=== PATIENT | female | born 1970 ===

== ENCOUNTER 2020-04-12 11:30 | Day surgery (SDC) | payer MEDICAID, SELFPAY ==
[2020-04-06 11:44] VITALS: BMI 37.9
--- NOTE | 2020-04-09 09:14 | P.CONAN_ITS ---
Documented by User: Natacha Jefferson 04/11/20 10:51 HPI - Anesthesia Eval Consult details Narrative: 50yo F for colonoscopy PMFSH Past Medical History Medical History (Updated 04/09/20 @ 09:21 by Natacha Jefferson) Anxiety Depression High BMI History of kidney stones Surgical History Surgical History Hx of cholecystectomy Hx of colonoscopy Hx of endoscopic retrograde cholangiopancreatography Social History Social History Smoking Status: Former smoker Smoking Quit Date: age 45 Use of substances other than those prescribed or required for medical reasons: No Advance Directives: No Advance Directives Information Provided: No Meds Allergies Allergy/AdvReac Type Severity Reaction Status Date / Time No Known Allergies Allergy Verified 04/12/20 11:40 [No Known Allergies*] Home Medications Medication Instructions Recorded Confirmed Type cyanocobalamin (vitamin B-12) 1,000 mcg PO DAILY 04/06/20 04/06/20 History fluticasone propionate [Flonase] 1 spray INTRANASAL DAILY 04/06/20 04/06/20 History loratadine [Claritin] 10 mg PO DAILY 04/06/20 04/06/20 History naproxen 375 mg PO BID PRN 04/06/20 04/06/20 History trazodone 100 mg PO BEDTIME 04/06/20 04/06/20 History venlafaxine [Effexor XR] 37.5 mg PO DAILY 04/06/20 04/06/20 History venlafaxine [Effexor XR] 150 mg PO DAILY 04/06/20 04/12/20 History Exam Exam Date and Time: April 09, 2020 0914 Height,Weight and Vital Signs: Height 5 ft 3 in Weight 97.069 kg Pertinent Lab Results Pertinent Lab Results: Laboratory Tests 02/11/20 02/11/20 02:12 02:12 WBC 10.1 Hgb 12.9 Hct 40.7 Plt Count 249 Sodium 139 Potassium 4.3 Chloride 107 Bicarbonate 23 BUN 22 H Creatinine 0.81 Assessment and Plan Assessment Anesthesia Assessment: Chart Reviewed Documented by User: Rc Mccoy MD 04/12/20 11:52 PMFSH Past Medical History Medical History (Updated 04/09/20 @ 09:21 by Natacha Jefferson) Anxiety Depression High BMI History of kidney stones Surgical History Surgical History Hx of cholecystectomy Hx of colonoscopy Hx of endoscopic retrograde cholangiopancreatography Social History Social History Smoking Status: Former smoker Smoking Quit Date: age 45 Use of substances other than those prescribed or required for medical reasons: No Advance Directives: No Advance Directives Information Provided: No Meds Allergies Allergy/AdvReac Type Severity Reaction Status Date / Time No Known Allergies Allergy Verified 04/12/20 11:40 [No Known Allergies*] Home Medications Medication Instructions Recorded Confirmed Type cyanocobalamin (vitamin B-12) 1,000 mcg PO DAILY 04/06/20 04/06/20 History fluticasone propionate [Flonase] 1 spray INTRANASAL DAILY 04/06/20 04/06/20 History loratadine [Claritin] 10 mg PO DAILY 04/06/20 04/06/20 History naproxen 375 mg PO BID PRN 04/06/20 04/06/20 History trazodone 100 mg PO BEDTIME 04/06/20 04/06/20 History venlafaxine [Effexor XR] 37.5 mg PO DAILY 04/06/20 04/06/20 History venlafaxine [Effexor XR] 150 mg PO DAILY 04/06/20 04/12/20 History Exam Airway Mallampati Class: I TM Dist: >3cm Neck ROM: Full Loose/Missing/Broken Teeth: No Heart: rrr Lungs: nl Other: ao3 Assessment and Plan Assessment Anesthesia Assessment: Anesthesia Plan Discussed, Consent Obtained and Chart Reviewed Final Anesthetic Review NPO: Yes ASA Class: II Final Preanesthetic Review: No Changes in Pt Med Stat, Meds & Allergies Reviewed, Consent Obtained/Reviewed, Med/Surg/Anes Hx Reviewed and Anes Risk s/Benef Reviewed Patient Risk: Low Procedure Risk: Low Anesthetic Plan Anesthetic Plan: MAC: Disposition: Standard PACU
[2020-04-12 11:43] VITALS: BP 151/60; PULSE 68; RESP 18; TEMP 36.3; O2SAT 99
[2020-04-12] MEDS: Lactated Ringers 1,000 ML 100 ML IVCONT (11:52)
[2020-04-12] MEDS: ondansetron HCL 4 MG/2 ML VIAL IVPUSH (12:01)
--- NOTE | 2020-04-12 12:03 | MHC.SHP ---
Pre-Procedural Eval Section B Chief Complaint: adenoma polyps of colon Relevant Family History (Specify if Yes): No Relevant Social History: None Present Medications: see Short Stay Collaborative assessment Medical History: Significant History (anxiety,depression, HLP) History of Previous Operations: Relevant previous surgery/procedure and date(s) (colonoscopy 2018) Allergies: Allergies Allergy/AdvReac Type Severity Reaction Status Date / Time No Known Allergies Allergy Verified 04/12/20 11:40 [No Known Allergies*] Review of Systems Sugical H&P ROS: Negative: Constitution, Cardiovascular, Respiratory, Neurological, Psychiatric, Hem-Onc, Allergic/Immunologic, Gastrointestinal, Genitourinary, Musculoskeletal, Integumentary, Endocrine and Eyes/Ears/Nose/Throat Exam Surgical H&P Exam: Normal: HEENT, Normal: Heart, Normal: Lungs, Normal: Extremities, Normal: Abdomen, Normal: Skin and Normal: Neurological Plan Diagnosis/Plan: Unchanged Patient has been examined and remains a candidate for the planned procedure
--- NOTE | 2020-04-12 12:20 | PC.NURSE ---
H2O AND SIMETHICONE USED
--- NOTE | 2020-04-12 12:33 | P.BOP_ITS ---
Brief Operative Note Date of procedure: 04/12/20 Pre-op diagnosis: hx of polyp and poor prep Post-op diagnosis: same Procedure: Operative Information Procedure Description: Colonoscopy COLONOSCOPY Instrument: Olympus variable stiffness pediatric scope 190L Colonoscopy Monitoring: Vital signs and clinical assessment, continuous EKG monitoring, Pulse oximetry, Carbon Dioxide monitoring and blood pressure monitoring were done throughout the procedure. Colon withdrawal time was [] minutes. Procedure: The patient was placed in the left lateral decubitis position and pre-procedure medications were administered. After a digital rectal examination of the ano-rectum, the video colonoscope was inserted into the rectum and advanced through the colon to the cecum/TI. The colonoscope was slowly withdrawn in a retrograde panoramic fashion and the colon mucosa was carefully examined including a retroflexed view of the rectum. Findings and interventions are described below. Procedure Difficulty: Findings: Terminal Ileum: Normal Cecum: normal Ascending Colon: x 2 sessiel polyps 7-9 mm removed with forceps Transverse Colon -normal Descending Colon: normal Sigmoid Colon: mild to moderate diverticulosis with mucosal hypertrophy Rectum small internal hemorrhoids on retroflexion Ano-rectum - normal Colon preparation: [place] Bowel Preparation Scale Right colon; 2 Transverse colon: 3 Left colon; 3 (0 = Unprepared colon segment with mucosa not seen due to solid stool that cannot be cleared. 1 = Portion of mucosa of the colon segment seen, but other areas of the colon segment not well seen due to staining, residual stool and/or opaque liquid. 2 = Minor amount of residual staining, small fragments of stool and/or opaque liquid, but mucosa of colon segment seen well. 3 = Entire mucosa of colon segment seen well with no residual staining, small fragments of stool or opaque liquid) Impression and Post Procedure Diagnosis: polyps internal hemorrhoids diverticular disease Plan: High fiber diet leaflet Avoid straining at stool, epsom salts and sitz bath prn if needed, anusol supps or cream prn Repeat Colonoscopy in 5 years or earlier if clinically indicated Above findings were reviewed with the patient and relevant handouts were provided if indicated. Surgeon: Mckay Marshall MD Anesthesia: MAC Condition: stable Disposition: PACU
[2020-04-12 12:40] VITALS: BP 131/71; PULSE 65; RESP 16; TEMP 36.3
[2020-04-12 12:55] VITALS: BP 123/67; PULSE 59; RESP 16; TEMP 36.1; O2SAT 99
--- NOTE | 2020-04-12 13:22 | HO.POSTANES ---
Post Anesthesia Evaluation Post Anesthesia Evaluation Vital Signs: Vital Signs Temp Pulse Resp BP Pulse Ox 04/12/20 12:55 97 F 59 16 123/67 99 04/12/20 12:40 97.4 F 65 16 131/71 04/12/20 11:43 97.3 F 68 18 151/60 H 99 Anesthesia: Monitored Mental Status: Awake Pain Control: Satisfactory Nausea/Vomiting: None Hydration: Adequate Anesthesia-Related Issues: No Anes. Related Issues
== END 2020-04-12 13:43 | disposition home or self-care (01) ==
PROVIDERS: Internal Medicine Gastroenterology; PCP Nurse Practitioner Family; Visit Provider Internal Medicine
PROC: 0DJD8ZZ Inspection of Lower Intestinal Tract, Via Natural or Artificial Opening Endoscopic (ICD-10-PCS; CPT 45378; principal; 2020-04-12 12:50)
DX: Z12.11 Encounter for screening for malignant neoplasm of colon (principal); Z86.010 Personal history of colon polyps; D12.2 Benign neoplasm of ascending colon; K57.30 Diverticulosis of large intestine without perforation or abscess without bleeding; K64.8 Other hemorrhoids; F32.9 Major depressive disorder, single episode, unspecified; F41.9 Anxiety disorder, unspecified; Z79.51 Long term (current) use of inhaled steroids; Z79.899 Other long term (current) drug therapy; Z90.49 Acquired absence of other specified parts of digestive tract; Z87.891 Personal history of nicotine dependence; Z87.442 Personal history of urinary calculi
CPT/HCPCS: 45380; 88305; J2405

== ENCOUNTER 2020-04-23 13:14 | Outpatient (REF) | payer MEDICAID, SELFPAY | END 2020-04-23 13:15 | disposition home or self-care (01) | LOC: HO.LAB 13:14 | PROVIDERS: Visit Provider Internal Medicine | DX: Z20.828 Contact with and (suspected) exposure to other viral communicable diseases (principal) | CPT/HCPCS: 87635 ==

== ENCOUNTER 2020-07-28 07:44 | Outpatient (REF) | payer MEDICAID, SELFPAY | END 2020-07-28 07:45 | disposition home or self-care (01) | LOC: HO.MAMMO 07:44 | PROVIDERS: PCP Nurse Practitioner Family; Visit Provider Nurse Practitioner Family | DX: Z13.89 Encounter for screening for other disorder (principal) ==

== ENCOUNTER 2020-09-06 12:37 | Outpatient (REF) | payer MEDICAID, SELFPAY ==
--- NOTE | ~2020-09-06 | MM_ITS ---
EXAMINATION: MM SCREENING DIGITAL BREAST TOMOSYNTHESIS, BILATERAL CLINICAL INFORMATION: Screening. Asymptomatic. The lifetime risk of breast cancer based on the Tyrer-Cuzick Model is 7%. COMPARISON: Mammography: 08/26/2019, 08/20/2018, 08/10/2017 TECHNIQUE: Digital breast tomosynthesis is performed in both the craniocaudal and mediolateral oblique views along with computer-aided detection (CAD). Synthesized 2D images are generated from the tomosynthesis. FINDINGS: There are scattered areas of fibroglandular density (ACR BI-RADS breast composition Category b). There are no significant masses, abnormal calcifications, or other abnormalities. Parenchymal pattern is similar to prior studies. Again, there are some grouped dermal calcifications at the bilateral areas medial breasts. MM/MM tomosynthesis screening BI IMPRESSION: No mammographic evidence of malignancy. ASSESSMENT: BI-RADS 2: Benign RECOMMENDATION: Routine annual mammography screening. This patient's information was entered into a reminder system with a target due date for their next mammogram.
== END 2020-09-06 12:38 | disposition home or self-care (01) ==
LOC: HO.MAMMO 12:37
PROVIDERS: Visit Provider Nurse Practitioner Family
DX: Z12.31 Encounter for screening mammogram for malignant neoplasm of breast (principal)
CPT/HCPCS: 77063; 77067

== ENCOUNTER 2020-10-02 15:52 | Outpatient (REF) | payer MEDICAID, SELFPAY ==
[2020-10-03 09:30] LABS: SARS COV2 PCR INHOUSE NEGATIVE (Negative)
== END 2020-10-02 15:53 | disposition home or self-care (01) ==
LOC: HO.LAB 15:52
PROVIDERS: Visit Provider Internal Medicine
DX: Z20.822 Contact with and (suspected) exposure to COVID-19 (principal)
CPT/HCPCS: C9803; U0003

== ENCOUNTER 2022-01-16 18:30 | Emergency (ER) | payer MEDICAID, SELFPAY ==
--- NOTE | ~2022-01-16 | CT_ITS ---
EXAMINATION: CT ABDOMEN AND PELVIS WITHOUT CONTRAST CLINICAL INFORMATION: Flank pain, history of stones COMPARISON: 02/11/2020 TECHNIQUE: Multidetector volumetric imaging was performed from the superior aspect of the liver through the pubic symphysis. Sagittal and coronal reformatted images were obtained on the technologist's workstation. This CT examination was performed using dose optimization techniques as appropriate, variously including the following: *Automated exposure control *Adjustment of mA and/or kV according to patient size (this includes techniques or standardized protocols for targeted exams where dose is matched to indication/reason for exam; i.e. extremities or head) *Use of iterative reconstruction technique DLP: 907 mGy-cm FINDINGS: LUNG BASES: The visualized lung bases are unremarkable. LIVER, GALLBLADDER, AND BILIARY TREE: The liver is normal in size, shape, and attenuation. No focal hepatic lesion or biliary ductal dilatation is present. Patient is status post cholecystectomy. PANCREAS: Unremarkable. SPLEEN: Unremarkable. ADRENAL GLANDS: Unremarkable. KIDNEYS AND URETERS: No hydronephrosis or obstructing calculus bilaterally. There are several scattered left renal calculi measuring up to 4 mm. BLADDER: Unremarkable. GASTROINTESTINAL TRACT: No evidence of bowel obstruction or significant wall thickening. The appendix is unremarkable. No free fluid or free air is seen. ABDOMINAL WALL: No significant hernia is appreciated. LYMPH NODES: Normal. VASCULAR: Unremarkable. PELVIC VISCERA: Unremarkable. OSSEOUS STRUCTURES: Mild degenerative changes are present in the spine. CT/CT abdomen pelvis wo con IMPRESSION: No hydronephrosis or ureteral calculus. Small left renal calculi noted.
[2022-01-16 20:03] VITALS: BP 138/92; PULSE 87; RESP 16; TEMP 36.6; O2SAT 97; BMI 38.2
[2022-01-16] MEDS: Acetaminophen 325 MG TABLET 650 MG PO (20:11)
[2022-01-16 20:14] LABS: MANUAL DIFF FLAG NO
[2022-01-16 20:19] LABS: Basophils Percent Auto 0.3 % (0-2); Eosinophils Absolute Auto 0.2 X10*3/uL (0.0-0.4); Eosinophils Percent Auto 1.3 % (0-4); Hematocrit 44.7 % (37.0-47.0); Hemoglobin 14.3 g/dl (12.0-16.0); Imm Gran Abs Auto 0.06 X10*3/uL (0.00-0.03); Imm Gran Pct Auto 0.5 % (0.0-0.4); Lymphocytes Absolute Auto 2.5 X10*3/uL (1.2-4.9); Lymphocytes Percent Auto 21.9 % (20-40); Mean Corpuscular Hemoglobin 27.9 pg (27.0-33.0); Mean Corpuscular Volume 87.3 fL (80.0-98.0); Mean Platelet Volume 10.1 fL (9.4-12.3); Monocytes Absolute Auto 0.9 X10*3/uL (0.1-1.2); Monocytes Percent Auto 7.7 % (2-11); Neutrophils Absolute Auto 7.9 x10*3/uL (2.0-8.3); Neutrophils Percent Auto 68.3 % (45-73); Platelet Count 352 X10*3/uL (160-400); Red Blood Count 5.12 X10*6/uL (4.20-5.50); Red Cell Distribution Width 14.9 % (11.0-16.0); White Blood Count 11.6 X10*3/uL (4.8-10.8)
[2022-01-16 20:32] LABS: Alanine Aminotransferase 43 U/L (0-31); Albumin Level 4.6 g/dL (3.5-5.0); Alkaline Phosphatase 153 U/L (39-117); Anion Gap 17 (12-20); Aspartate Amino Transferase 35 U/L (5-31); Bilirubin Direct 0.2 mg/dL (0.0-0.5); Bilirubin Total 0.5 mg/dL (0.0-1.0); Blood Urea Nitrogen 27 mg/dL (9-16); Calcium 9.6 mg/dL (8.4-10.2); Carbon Dioxide 24 mmol/L (22-29); Chloride 102 mmol/L (96-108); Creatinine Clr Calc Pharmacy 87.4; Estimated Glomerular Filt Rate > 60; Glucose Random 122 mg/dL (60-115); Lipase 32 U/L (8-78); Potassium 4.6 mmol/L (3.3-5.1); Sodium 138 mmol/L (135-145); Total Protein 7.8 g/dL (6.5-8.0)
[2022-01-16 20:33] LABS: Appearance Urine HAZY; Color Urine ORANGE; Glucose Urine UA 250 MG/DL (NEG); Leukocyte Esterase Urine TRACE (NEG); Nitrite Urine POS (NEG); Specific Gravity - Urine >= 1.030 (1.005-1.025); UACC Culture Trigger YES; Urine Blood TRACE (NEG); Urine Ketones NEG (NEG); Urine Protein 2+ MG/DL (NEG-TRACE)
[2022-01-16 20:39] LABS: Bacteria Urine TRACE /LPF; Calcium Oxalate Crystals Urine 1+ /LPF; Squamous Epithelial Cell Urine 2+ /LPF
[2022-01-16 20:40] LABS: RBC Urine 0-2 /HPF (0)
--- NOTE | 2022-01-17 03:01 | ED_ITS ---
HPI - Abdominal Pain General Chief Complaint: Abdominal Pain Stated Complaint: abd pain Time Seen by Provider: 01/17/22 03:01 Source: patient and family Mode of arrival: ambulatory Limitations: no limitations History of Present Illness HPI narrative: Patient with History of kidney stone been complaining of lower abdominal pain for last 4 days with urinary frequency also complaining of bilateral flank pain associated with nausea no fever no chills no diarrhea Related Data Home Medications Medication Instructions Recorded Confirmed cyanocobalamin (vitamin B-12) 1,000 mcg PO DAILY 04/06/20 04/06/20 1,000 mcg capsule fluticasone propionate 50 1 spray intranasal DAILY 04/06/20 04/06/20 mcg/actuation nasal spray,suspension loratadine 10 mg tablet (Claritin) 10 mg PO DAILY 04/06/20 04/06/20 naproxen 375 mg tablet 375 mg PO BID PRN Pain 04/06/20 04/06/20 trazodone 100 mg tablet 100 mg PO BEDTIME 04/06/20 04/06/20 venlafaxine 150 mg 150 mg PO DAILY 04/06/20 04/12/20 capsule,extended release 24 hr (Effexor XR) venlafaxine 37.5 mg 37.5 mg PO DAILY 04/06/20 04/06/20 capsule,extended release 24 hr (Effexor XR) Previous Rx's Medication Instructions Recorded cefuroxime axetil 500 mg tablet 500 mg PO BID 10 days #20 tabs 01/17/22 tramadol 50 mg tablet 50 mg PO Q6H PRN pain #20 tabs 01/17/22 Allergies Allergy/AdvReac Type Severity Reaction Status Date / Time No Known Allergies Allergy Verified 04/12/20 11:40 [No Known Allergies*] Review of Systems Review of Systems Yes all other systems are reviewed and are negative PMFSH Past Medical History Medical History Anxiety Depression High BMI History of kidney stones Surgical History Hx of cholecystectomy Hx of colonoscopy Hx of endoscopic retrograde cholangiopancreatography Social History Social History Advance Directives: No Physical Exam ED Vital Signs: Vital Signs - 24 hr 01/16/22 20:03 01/17/22 03:10 01/17/22 06:38 Temperature 97.9 F 98.7 F Pulse Rate 87 86 Respiratory Rate 16 18 16 Blood Pressure 138/92 H 140/74 H Pulse Oximetry 97 100 Oxygen Delivery Method Room Air Room Air BMI result Body Mass Index 38.2 Appearance: Alert. Oriented X3. In moderate distress. ENT: Pharynx normal. Oral Mucosa moist Neck: Normal inspection. Neck supple. CVS: Normal heart rate and rhythm. Pulses normal. Respiratory: No respiratory distress. Equal air entry bilateral, no wheezing/rales/rhonchi Abdomen: Soft and nontender. Bowel sounds are present, no mass palpable, bilateral severe tenderness lower back tenderness Skin: Skin warm and dry. Normal skin color. Normal skin turgor. Extremities: No lower extremity edema. No calf tenderness Neuro: Oriented X 3. No motor deficit. MDM - Abdominal Pain MDM Narrative Medical decision making narrative: Patient lab stable CT scan negative for any acute obstructive uropathy discharge patient home on Ceftin and tramadol Lab Data Attestation: I reviewed the patient's lab results. Result diagrams: 01/16/22 20:11 01/16/22 20:11 Labs: Lab Results 01/16/22 01/16/22 01/16/22 Range/Units 20:11 20:11 20:20 WBC 11.6 H (4.8-10.8) X10*3/uL RBC 5.12 (4.20-5.50) X10*6/uL Hgb 14.3 (12.0-16.0) g/dl Hct 44.7 (37.0-47.0) % MCV 87.3 (80.0-98.0) fL MCH 27.9 (27.0-33.0) pg MCHC 32.0 (31.0-35.0) g/dl RDW 14.9 (11.0-16.0) % Plt Count 352 (160-400) X10*3/uL MPV 10.1 (9.4-12.3) fL Immature Gran % (Auto) 0.5 H (0.0-0.4) % Neut % (Auto) 68.3 (45-73) % Lymph % (Auto) 21.9 (20-40) % [place] % (Auto) 7.7 (2-11) % Eos % (Auto) 1.3 (0-4) % Baso % (Auto) 0.3 (0-2) % Lymph # (Auto) 2.5 (1.2-4.9) X10*3/uL [place] # (Auto) 0.9 (0.1-1.2) X10*3/uL Eos # (Auto) 0.2 (0.0-0.4) X10*3/uL Baso # (Auto) 0.0 (0.0-0.2) X10*3/uL Abs Immat Gran (auto) 0.06 H (0.00-0.03) X10*3/uL Absolute Neuts (auto) 7.9 (2.0-8.3) x10*3/uL Absolute Nucleated RBC 0.000 (0.0-0.012) X10*3/uL Nucleated RBC % (auto) 0.0 (0.0-0.2) /100WBC Sodium 138 (135-145) mmol/L Potassium 4.6 (3.3-5.1) mmol/L Chloride 102 (96-108) mmol/L Carbon Dioxide 24 (22-29) mmol/L Anion Gap 17 (12-20) BUN 27 H (9-16) mg/dL Creatinine 0.83 (0.5-1.4) mg/dL Estim Creat Clear Calc 87.4 Estimated GFR > 60 Random Glucose 122 H (60-115) mg/dL Calcium 9.6 (8.4-10.2) mg/dL Total Bilirubin 0.5 (0.0-1.0) mg/dL Direct Bilirubin 0.2 (0.0-0.5) mg/dL AST 35 H (5-31) U/L ALT 43 H (0-31) U/L Alkaline Phosphatase 153 H (39-117) U/L Total Protein 7.8 (6.5-8.0) g/dL Albumin 4.6 (3.5-5.0) g/dL Lipase 32 (8-78) U/L Urine Color ORANGE A Urine Appearance HAZY Urine pH 5.0 (5.0-8.0) Ur Specific [place] >= 1.030 H (1.005-1.025) Urine Protein 2+ H (NEG-TRACE) MG/DL Urine Glucose (UA) 250 H (NEG) MG/DL Urine Ketones NEG (NEG) MG/DL Urine Blood TRACE (NEG) Urine Nitrite POS H (NEG) Ur Leukocyte Esterase TRACE H (NEG) Urine RBC 0-2 (0) /HPF Urine WBC 1-4 (0-4) /HPF Ur Squamous Epith Cells 2+ /LPF Calcium Oxalate Crystal 1+ /LPF Urine Bacteria TRACE /LPF Discharge Plan Discharge Clinical Impression: UTI (urinary tract infection) Patient Disposition: Home, Self-Care Instructions: Urinary Tract Infection in Women (ED) Additional Instructions: Drink plenty of fluids Antibiotics and pain medicine as prescribed Follow with PCP if not better Prescriptions: New cefuroxime axetil 500 mg tablet 500 mg PO BID 10 Days Qty: 20 0RF tramadol 50 mg tablet 50 mg PO Q6H PRN (Reason: pain) Qty: 20 0RF No Action venlafaxine [Effexor XR] 37.5 mg Capsule,Extended Release 24hr 37.5 mg PO DAILY naproxen 375 mg Tablet 375 mg PO BID PRN (Reason: Pain) venlafaxine [Effexor XR] 150 mg Capsule,Extended Release 24hr 150 mg PO DAILY trazodone 100 mg Tablet 100 mg PO BEDTIME fluticasone propionate [Flonase] 50 mcg/actuation [place],Suspension 1 spray INTRANASAL DAILY loratadine [Claritin] 10 mg Tablet 10 mg PO DAILY cyanocobalamin (vitamin B-12) 1,000 mcg Capsule 1,000 mcg PO DAILY Interventions: ED Discharge Assessment Last Done: 01/17/22 06:39 Discharge Date/Time: 01/17/22 06:40
[2022-01-17 03:10] VITALS: BP 140/74; PULSE 86; RESP 18; TEMP 37.1; O2SAT 100
[2022-01-17] MEDS: 0.9 % Sodium Chloride 1,000 ML 999 ML IV (03:35)
[2022-01-17] MEDS: ondansetron HCL 4 MG/2 ML VIAL IVPUSH (03:38)
[2022-01-17] MEDS: Morphine Sulfate 4 MG/ML CARTRIDGE IVPUSH (03:39)
[2022-01-17] MEDS: cefTRIAXone sodium 1 GM in 0.9 % Sodium Chloride 50 ML IV (03:40)
--- NOTE | 2022-01-17 03:46 | PC.NURSE ---
Pt a&o, no sob or chest pain. Pt Iv placed and labs collected. Medicated per Sep.
[2022-01-17 06:38] VITALS: RESP 16
--- NOTE | 2022-01-17 06:38 | PC.NURSE ---
pt a&o, no sob or chest pain. Reviewed discharge instructions with pt. pt verbalized understanding.
== END 2022-01-17 06:40 | disposition home or self-care (01) ==
PROVIDERS: Emergency Provider Internal Medicine
DX: N39.0 Urinary tract infection, site not specified (principal); B96.4 Proteus (mirabilis) (morganii) as the cause of diseases classified elsewhere; R10.30 Lower abdominal pain, unspecified; R11.0 Nausea; Z79.899 Other long term (current) drug therapy
CPT/HCPCS: 36415; 74176; 80053; 81001; 82248; 83690; 85025; 87086; 87088; 87186; 96361; 96374; 96375; 99284; J0696; J2270; J2405

== ENCOUNTER 2022-12-20 18:27 | Emergency (ER) | payer MEDICAID, SELFPAY ==
--- NOTE | ~2022-12-20 | XR_ITS ---
EXAMINATION: XR SHOULDER, LEFT CLINICAL INFORMATION: Left shoulder pain. COMPARISON: None available. TECHNIQUE: Three views of the left shoulder. FINDINGS: No acute fractures or malalignment. Mild degenerative osteoarthritis of the acromioclavicular joint. No abnormal soft tissue calcifications. No unexpected radiopaque foreign bodies. XR/XR shoulder LT min 2V IMPRESSION: No acute fractures or malalignment. Mild degenerative osteoarthritis of the acromioclavicular joint.
[2022-12-20 18:33] VITALS: BP 148/86; PULSE 68; RESP 18; TEMP 35.9; O2SAT 97; BMI 42.3
--- NOTE | 2022-12-20 18:34 | ECG_ITS ---
Test Reason : SHOULDER PAIN Blood Pressure : / mmHG Vent. Rate : 061 BPM Atrial Rate : 061 BPM P-R Int : 124 ms QRS Dur : 076 ms QT Int : 390 ms P-R-T Axes : 004 010 005 degrees QTc Int : 392 ms Normal sinus rhythm Minimal voltage criteria for LVH, may be normal variant ( R in aVL ) Borderline ECG When compared with ECG of 17-NOV-2014 09:12, T wave amplitude has decreased in Lateral leads Referred By: Gloria Urena Electronically Signed By:DIANN SOUZA MD
--- NOTE | 2022-12-20 18:34 | ED_ITS ---
HPI - General Adult General Chief complaint: General Medical Stated complaint: left arm pain Time Seen by Provider: 12/20/22 20:07 Source: patient Mode of arrival: ambulatory Limitations: no limitations History of Present Illness HPI narrative: Patient comes to the emergency room complaining of 1 week of left shoulder pain. Patient states that whenever she abducts her arm all the way to the top, she has a pinching sensation on the inside. Patient denies chest pain or shortness of breath. Denies any trauma. Related Data Home Medications Medication Instructions Recorded Confirmed cyanocobalamin (vitamin B-12) 1,000 mcg PO DAILY 04/06/20 04/06/20 1,000 mcg capsule fluticasone propionate 50 1 spray intranasal DAILY 04/06/20 04/06/20 mcg/actuation nasal spray,suspension loratadine 10 mg tablet (Claritin) 10 mg PO DAILY 04/06/20 04/06/20 naproxen 375 mg tablet 375 mg PO BID PRN Pain 04/06/20 04/06/20 trazodone 100 mg tablet 100 mg PO BEDTIME 04/06/20 04/06/20 venlafaxine 150 mg 150 mg PO DAILY 04/06/20 04/12/20 capsule,extended release 24 hr (Effexor XR) venlafaxine 37.5 mg 37.5 mg PO DAILY 04/06/20 04/06/20 capsule,extended release 24 hr (Effexor XR) Previous Rx's Medication Instructions Recorded cefuroxime axetil 500 mg tablet 500 mg PO BID 10 days #20 tabs 01/17/22 tramadol 50 mg tablet 50 mg PO Q6H PRN pain #20 tabs 01/17/22 ibuprofen 600 mg tablet 600 mg PO TID PRN fever or pain 12/20/22 #20 tabs Allergies Allergy/AdvReac Type Severity Reaction Status Date / Time No Known Allergies Allergy Verified 12/20/22 18:33 [No Known Allergies*] Review of Systems Review of Systems: Constitutional : No Weight loss, No Fever, No Chills, No Night Sweats, No Fatigue, No Malaise ENT/Mouth : No Hearing loss, No Ear Pain, No Nasal Congestion, No Sinus Pain, No Hoarseness, No sore throat, No Rhinorrhea, No Swallowing Difficulty Eyes: No Eye Pain, No Swelling, No Redness, No Foreign Body, No Discharge, No Vision Changes Cardiovascular : No Chest Pain, No SOB, No Dyspnea on Exertion, No Orthopnea, No Edema, No Palpitations Respiratory : No Cough, No Sputum, No Wheezing, No Smoke Exposure, No Dyspnea Gastrointestinal : No Nausea, No Vomiting, No Diarrhea, No Constipation, No abdominal Pain, No Hematochezia, No Melena Genitourinary : no irregular bleeding, No Dysuria, No Urinary Frequency, No Hematuria, No Urinary Incontinence, No Urgency, No Flank Pain, No Urinary Flow Changes, No Hesitancy Musculoskeletal : Complaining of right shoulder pain, No Myalgias, No Joint Swelling Skin : No Skin Lesions, No rash Neuro : No Weakness, No Numbness, No Paresthesias, No Loss of Consciousness, No Dizziness, No Headache Psych : No Anxiety/Panic, No Depression, No SI/HI/AH/VH, No Social Issues, Heme/Lymph: No Bruising, No Bleeding,No Lymphadenopathy Endocrine : No Polyuria, No Polydipsia, No Temperature Intolerance [facility] Past Medical History Medical History Anxiety Depression High BMI History of kidney stones Surgical History Hx of cholecystectomy Hx of colonoscopy Hx of endoscopic retrograde cholangiopancreatography Social History Social History Advance Directives: No Advance Directives Information Provided: No Physical Exam ED Vital Signs: Vital Signs - 24 hr 12/20/22 18:33 12/20/22 19:45 Temperature 96.7 F L Pulse Rate 68 61 Respiratory Rate 18 18 Blood Pressure 148/86 H 140/70 H Pulse Oximetry 97 98 Oxygen Delivery Method Room Air Room Air BMI result Body Mass Index 42.3 Const Other: Appearance: Alert. Oriented X3. No acute distress. Eyes: Pupils equal, round and reactive to light. ENT: Pharynx normal. Neck: Normal inspection. Neck supple. No lymph nodes noted. No crepitus CVS: Normal heart rate and rhythm. Pulses normal. Normal S1 and S2 Respiratory: No respiratory distress. Breath sounds normal. No Wheezing. No rales Abdomen: Soft and nontender. No rigidity. No distention. Skin: Skin warm and dry. Normal skin color. Normal skin turgor. Extremities: No lower extremity edema. No Lacerations. No Rash. Pain with abduction, able to abduct to 180 degrees but with pain doing so. Pain to palpation in the suprascapular area and the distal clavicular area, strength 5/5 Neuro: Oriented X 3. No motor deficit. No sensory deficit. Moving all extremities. No slurred speech. CN 2 through 12 grossly intact Psych: calm, cooperative, normal affect Course Course Course Narrative: This is an RME: Additional HPI, ROS, PE not included below will be deferred to primary provider. 52-year-old female presents with atraumatic left-sided shoulder pain, worse with movement better at rest, started a week ago and has been worsening ever since. Denies trauma. Denies numbness and tingling. No fevers or chills. No overlying skin changes. Full range of motion to left shoulder however uncomfortable with overhead motions. Plan x-ray Medical Decision Making Medical Decision Making MDM Narrative: I discussed the physical exam with patient, patient may have bursitis. Patient has not tried any ibuprofen at home, she will try alternating with Tylenol. I discussed with the patient that if she has no improvement, she needs to have follow-up with her primary care physician, she may need physical therapy versus more advanced imaging/MRI -EKG my interpretation: Normal sinus rhythm, heart rate 61, no ST segment depression or elevation, nonspecific T-wave inversion in V3, QTC 392 -left shoulder pain he unlikely to be from cardiac etiology Differential Diagnosis Differential Diagnoses: The differential diagnosis associated with the presentation includes (Osteoarthritis, labrum tear, tendinitis, rotator cuff injury) Radiology Impression Discussion of test interpretation with radiology: I have reviewed the radiologist's reading. Radiologist Impression: FINDINGS: No acute fractures or malalignment. Mild degenerative osteoarthritis of the acromioclavicular joint. No abnormal soft tissue calcifications. No unexpected radiopaque foreign bodies.? XR/XR shoulder LT min 2V IMPRESSION: No acute fractures or malalignment. Mild degenerative osteoarthritis of the acromioclavicular joint. ? Discharge Plan Discharge Clinical Impression: Subacromial bursitis of left shoulder joint Patient Disposition: Home, Self-Care Instructions: Shoulder Bursitis (ED) Additional Instructions: Please follow-up with your primary care physician tomorrow. If you have any worsening or new symptoms, please return to the emergency room or call 911 Prescriptions: New ibuprofen 600 mg tablet 600 mg PO TID PRN (Reason: fever or pain) Qty: 20 0RF No Action venlafaxine [Effexor XR] 37.5 mg Capsule,Extended Release 24hr 37.5 mg PO DAILY naproxen 375 mg Tablet 375 mg PO BID PRN (Reason: Pain) venlafaxine [Effexor XR] 150 mg Capsule,Extended Release 24hr 150 mg PO DAILY trazodone 100 mg Tablet 100 mg PO BEDTIME fluticasone propionate [Flonase] 50 mcg/actuation [place],Suspension 1 spray INTRANASAL DAILY loratadine [Claritin] 10 mg Tablet 10 mg PO DAILY cyanocobalamin (vitamin B-12) 1,000 mcg Capsule 1,000 mcg PO DAILY cefuroxime axetil 500 mg tablet 500 mg PO BID 10 Days Qty: 20 0RF tramadol 50 mg tablet 50 mg PO Q6H PRN (Reason: pain) Qty: 20 0RF
[2022-12-20 19:45] VITALS: BP 140/70; PULSE 61; RESP 18; O2SAT 98
[2022-12-20] MEDS: Ibuprofen 600 MG TABLET PO (20:26)
== END 2022-12-20 20:45 | disposition home or self-care (01) ==
PROVIDERS: Emergency Provider Emergency Medicine
DX: M75.52 Bursitis of left shoulder (principal); M79.602 Pain in left arm
CPT/HCPCS: 73030; 93005; 99283; 99284

== ENCOUNTER 2023-06-19 13:22 | Outpatient (REF) | payer MEDICAID, SELFPAY | END 2023-06-19 13:23 | disposition home or self-care (01) | LOC: HO.MAMMO 13:22 | DX: Z12.31 Encounter for screening mammogram for malignant neoplasm of breast (principal) | CPT/HCPCS: 77063; 77067 ==

== ENCOUNTER → 2023-06-19 13:30 | Outpatient (BNV) | payer MEDICAID, SELFPAY | PROVIDERS: Visit Provider Radiology Diagnostic Radiology | DX: Z12.31 Encounter for screening mammogram for malignant neoplasm of breast (principal) | CPT/HCPCS: 77063; 77067 ==

== ENCOUNTER 2023-07-14 09:50 | Outpatient (REF) | payer MEDICAID, SELFPAY ==
[2023-07-14 12:01] LABS: Alanine Aminotransferase 45 U/L (0-31); Albumin Level 4.3 g/dL (3.5-5.0); Alkaline Phosphatase 146 U/L (39-117); Anion Gap 11 (12-20); Aspartate Amino Transferase 31 U/L (5-31); Bilirubin Total 0.5 mg/dL (0.0-1.0); Blood Urea Nitrogen 16 mg/dL (9-16); Calcium 9.8 mg/dL (8.4-10.2); Carbon Dioxide 26 mmol/L (22-29); Chloride 108 mmol/L (96-108); Cholesterol 229 mg/dL (<200); Estimated Glomerular Filt Rate > 60; Glucose Random 94 mg/dL (60-115); HDL Cholesterol 64 mg/dL (>40); LDL Cholesterol Calculated 144 mg/dL (<100); Potassium 4.5 mmol/L (3.3-5.1); Sodium 140 mmol/L (135-145); Total Protein 7.4 g/dL (6.5-8.0); Triglycerides 107 mg/dL (<150)
[2023-07-14 12:06] LABS: Estimated Average Glucose 100 mg/dL; Hemoglobin A1c % 5.1 % (<6.0)
[2023-07-14 12:31] LABS: Vitamin B12 430 pg/mL (200-900)
== END 2023-07-14 09:51 | disposition home or self-care (01) ==
LOC: HO.HHCL 09:50
PROVIDERS: Visit Provider Nurse Practitioner Primary Care
DX: I10 Essential (primary) hypertension (principal)
CPT/HCPCS: 36415; 80053; 80061; 82607; 83036

== ENCOUNTER 2023-08-18 08:01 | Outpatient (AMB) | payer MEDICAID, SELFPAY ==
--- NOTE | 2023-08-18 08:05 | A.OFFVIS_ITS ---
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 No complaints. Last Pap/HPV was negative in 04/20 Last Mammogram was BI-RADS 1 in 06/27 Last Colonoscopy was in 04/24, the recommendation was to repeat in 5 years [facility] Medical History HTN (hypertension) High BMI History of kidney stones Anxiety Depression Surgical History Hx of colonoscopy Hx of endoscopic retrograde cholangiopancreatography Hx of cholecystectomy Family History Brother HTN (hypertension) Diabetes Father HTN (hypertension) Diabetes Mother Diabetes Paternal Uncle Colon cancer Social History Household Members Other:: daughter Housing: House Alcohol intake: current Alcohol intake frequency: a few times a week Alcohol type: beer Patient Tobacco Use Status: Former Tobacco user Years Smoked: 20 Current occupational status: disabled Sexually active: No Sexual orientation: Straight/Heterosexual Gender identity: Female Female Reproductive History Menstrual Total pregnancies: 7 Full term: 5 Number of Living Children: 5 Ab spontaneous: 1 Date of Mammogram: 06/19/23 Review of Systems Const All systems reviewed & are unremarkable except as noted in HPI and below Card Reports as per HPI Resp Reports as per HPI GI Reports as per HPI and Reports no additional complaints Reports as per HPI Physical Exam Vital Signs: Last Vital Signs BP 140/80 H 08/18/23 08:12 BMI result Body Mass Index 41.4 Const General: cooperative, healthy appearing and comfortable Chest Chest palpation & inspection: normal inspection of the chest and normal palpation of entire chest wall Breast/axilla inspection: normal inspection of the breasts and normal inspection of the axillae Breast/axilla palpation: normal palpation of the breasts, normal palpation of the axillae and no axillary lymphadenopathy Resp Effort & Inspection: normal respiratory effort Auscultation: clear to auscultation bilaterally Percussion: percussion normal Cardio Palpation: normal PMI Rate: regular rate Rhythm: regular rhythm Heart sounds: no murmurs and no rubs Peripheral pulses: Peripheral pulses 2+ throughout GI Inspection: Yes normal to inspection Palpation (GI): Soft to palpation, nontender, no guarding, not rigid and No hepatosplenomegaly present Percussion: Yes normal to percussion Auscultation: normal bowel sounds Rectal Exam - Female: deferred General: Yes bladder normal to palpation External Female Exam: No lesion Speculum Exam - Vagina: normal appearance of the vagina, normal palpation, normal vaginal discharge and not erythematous Speculum Exam - Cervix: normal appearance of the cervix and normal palpation Bimanual exam- vagina & uterus: normal bimanual exam, normal palpation, uterine size normal, bladder normal to palpation, consistency normal and normal palpation Bimanual Exam- Adnexa, other: normal adnexae, no masses and no tenderness Assessment & Plan Assessment & Plan (1) Well woman exam: Code(s): Z01.419 - Encounter for gynecological examination (general) (routine) without abnormal findings Plan: Co testing done. Counseled the patient about the recommended dietary allowance of 1200 mg of Calcium & 600 IU of vitamin D. Instructions given the patient to schedule next screening Mammogram in 06/27. The patient was instructed to perform monthly self-breast exams and schedule annual exam in a year. All questions answered and the patient verbalized understanding. Coding Level of Care Code New Pt Prev Care 40-64y(36668) Diagnoses Well woman exam Z01.419
[2023-08-18 08:12] VITALS: BP 140/80; BMI 41.4
== END 2023-08-18 09:59 | disposition home or self-care (01) ==
PROVIDERS: Visit Provider Obstetrics & Gynecology
DX: Z01.419 Encounter for gynecological examination (general) (routine) without abnormal findings (principal)
CPT/HCPCS: 99386

== ENCOUNTER 2023-08-18 08:01 | Outpatient (REF) | payer MEDICAID, SELFPAY ==
[2023-08-21 03:04] LABS: HPV mRNA E6/E7 rflx Not Detected (Not Detected)
== END 2023-08-18 08:02 | disposition home or self-care (01) ==
LOC: HO.LNP 08:01
PROVIDERS: Visit Provider Obstetrics & Gynecology
DX: Z01.419 Encounter for gynecological examination (general) (routine) without abnormal findings (principal); Z11.51 Encounter for screening for human papillomavirus (HPV)
CPT/HCPCS: 87624; 88142; 99386

== ENCOUNTER 2024-02-16 19:34 | Emergency (ER) | payer MEDICAID, SELFPAY ==
--- NOTE | 2024-02-16 19:49 | ED.WOUNDLAC ---
HPI - Wound/Laceration General Chief Complaint: Extremity Injury, Upper Stated Complaint: lacerated finger tips Time Seen by Provider: 02/16/24 20:01 Source: patient Mode of arrival: ambulatory Limitations: no limitations History of Present Illness ED Provider: Suzi Rich PA-C HPI narrative: 53-year-old female presents to the ER for evaluation of avulsions to the left thumb and left pinky finger that occurred 3 days ago and she was cutting vegetables. Patient attempted to glue the wound shut at home but it did not work. No bleeding today. She has ongoing pain with flexion of the fingers. Tdap is up-to-date. Denies numbness or tingling. Onset (ago): day(s) (3) Place: home Patient tetanus UTD: Yes Context: accidental Associated symptoms: pain Treatments prior to arrival: bandage and other (skin glue) Related Data Home Medications ?Medication ?Instructions ?Recorded ?Confirmed cyanocobalamin (vitamin B-12) 1,000 mcg PO DAILY 04/06/20 04/06/20 1,000 mcg capsule fluticasone propionate 50 1 spray intranasal DAILY 04/06/20 04/06/20 mcg/actuation nasal spray,suspension loratadine 10 mg tablet (Claritin) 10 mg PO DAILY 04/06/20 04/06/20 naproxen 375 mg tablet 375 mg PO BID PRN Pain 04/06/20 04/06/20 trazodone 100 mg tablet 100 mg PO BEDTIME 04/06/20 04/06/20 venlafaxine 150 mg 150 mg PO DAILY 04/06/20 04/12/20 capsule,extended release 24 hr (Effexor XR) venlafaxine 37.5 mg 37.5 mg PO DAILY 04/06/20 04/06/20 capsule,extended release 24 hr (Effexor XR) lisinopril 10 mg tablet 10 mg PO DAILY 08/18/23 Previous Rx's ?Medication ?Instructions ?Recorded tramadol 50 mg tablet 50 mg PO Q6H PRN pain #20 tabs 01/17/22 ibuprofen 600 mg tablet 600 mg PO TID PRN fever or pain 12/20/22 #20 tabs Allergies Allergy/AdvReac Type Severity Reaction Status Date / Time No Known Allergies Allergy Verified 02/16/24 19:54 [No Known Allergies*] Review of Systems Review of Systems: Yes all other systems are reviewed and are negative [facility] Past Medical History Medical History HTN (hypertension) High BMI History of kidney stones Anxiety Depression Surgical History Hx of colonoscopy Hx of endoscopic retrograde cholangiopancreatography Hx of cholecystectomy Family History Family History Brother HTN (hypertension) Diabetes Father HTN (hypertension) Diabetes Mother Diabetes Paternal Uncle Colon cancer Social History Social History Household Members Other:: daughter Housing: House Alcohol intake: current Alcohol intake frequency: a few times a week Alcohol type: beer Patient Tobacco Use Status: Former Tobacco user Years Smoked: 20 Do you have a plan to hurt others: No Plan Current occupational status: disabled Sexual orientation: Straight/Heterosexual Gender identity: Female Physical Exam Vital Signs: Vital Signs: Last Vital Signs Temp 98.5 F 02/16/24 19:50 Pulse 76 02/16/24 19:50 Resp 16 02/16/24 19:50 BP 120/59 L 02/16/24 19:50 Pulse Ox 96 02/16/24 19:50 O2 Del Method Room Air 02/16/24 19:50 BMI result Body Mass Index 40.4 Appearance: Alert. Oriented X3. No acute distress. HEENT: normal inspection CVS: Normal heart rate and rhythm. Pulses normal. Respiratory: No respiratory distress. Skin: Skin warm and dry. Normal skin color. Normal skin turgor. No rashes. Extremities: Left than 1 cm skin avulsion of the tip of the left pinky finger and the tip of the left thumb with epithelialization present, no active bleeding. Wounds are well approximated. Cap refill is less than 3 seconds. No nail involvement. Neuro: Oriented X 3. No motor deficit. No sensory deficit. Medical Decision Making Medical Decision Making MDM Narrative: 53-year-old female presents to the ER for evaluation of avulsion wounds of her left thumb and left pinky finger that occurred 3 days ago when chopping vegetables. She is having ongoing pain and wound continues to slightly open as she is using her hands continuing to do the dishes and cook food. No active bleeding today. Pain is worse on palpation of the left thumb wound. No evidence of infection on examination. Wounds are 3-day-old there is no role for suture repair. Wounds were cleansed with alcohol and Dermabond and Steri-Strips were used to reinforce the wounds. Dry sterile dressing was applied. Wound care was discussed with the patient she is stable for discharge home. Differential Diagnosis Differential Diagnoses: The differential diagnosis associated with the presentation includes Superficial laceration, skin avulsion, deep laceration, cellulitis, delayed wound healing Independent Historian Clinical information obtained from an independent historian. History obtained from or confirmed by: Friend External Record Review External record reviewed: Outpatient record, Prior outpatient labs and Prior outpatient radiology Prescription Management I considered prescription management with: Antibiotic Procedures Laceration Laceration 1: Site: hand Side (If applicable): left Size (cm): 1 Description: flap Depth: simple, single layer Pre-repair: irrigated extensively and deep structures intact Skin layer closed with: other (Dermabond and Steri-Strips) Laceration 2: Site: hand Side (If applicable): left Size (cm): 1 Description: flap Depth: simple, single layer Pre-repair: irrigated extensively and deep structures intact Skin layer closed with: other (Skin glue and Steri-Strips) Critical Care Time Critical Care Time Critical Care Time: No Discharge Plan Discharge Clinical Impression: Avulsion of finger tip Qualifiers: Encounter type: initial encounter Qualified Code(s): S61.209A - Unspecified open wound of unspecified finger without damage to nail, initial encounter Patient Disposition: Home, Self-Care Instructions: Finger Laceration (ED) Additional Instructions: Skin glue and steri strips were used to close and cover the wounds. Do not get wet for 48 hours, after that you can briefly wash with soap and water then pat dry. Keep wound clean and covered. Do not submerge in water, no swimming, no dishes If you develop signs of infection including increased pain, swelling, redness or drainage of pus come back to the ER for further evaluation. Prescriptions: No Action venlafaxine [Effexor XR] 37.5 mg Capsule,Extended Release 24hr 37.5 mg PO DAILY naproxen 375 mg Tablet 375 mg PO BID PRN (Reason: Pain) venlafaxine [Effexor XR] 150 mg Capsule,Extended Release 24hr 150 mg PO DAILY trazodone 100 mg Tablet 100 mg PO BEDTIME fluticasone propionate [Flonase] 50 mcg/actuation [place],Suspension 1 spray INTRANASAL DAILY loratadine [Claritin] 10 mg Tablet 10 mg PO DAILY cyanocobalamin (vitamin B-12) 1,000 mcg Capsule 1,000 mcg PO DAILY tramadol 50 mg tablet 50 mg PO Q6H PRN (Reason: pain) Qty: 20 0RF ibuprofen 600 mg tablet 600 mg PO TID PRN (Reason: fever or pain) Qty: 20 0RF lisinopril 10 mg tablet 10 mg PO DAILY Referrals: [facility] [Primary Care Provider] - Print Language: Swedish
[2024-02-16 19:50] VITALS: BP 120/59; PULSE 76; RESP 16; TEMP 36.9; O2SAT 96; BMI 40.4
[2024-02-16 20:22] VITALS: BP 120/59; PULSE 76; RESP 16; TEMP 36.9; O2SAT 96
== END 2024-02-16 20:22 | disposition home or self-care (01) ==
PROVIDERS: Emergency Provider Emergency Medicine
DX: S61.012A Laceration without foreign body of left thumb without damage to nail, initial encounter (principal); S61.217A Laceration without foreign body of left little finger without damage to nail, initial encounter; W26.0XXA Contact with knife, initial encounter; Y93.G1 Activity, food preparation and clean up; Y92.010 Kitchen of single-family (private) house as the place of occurrence of the external cause; Y99.9 Unspecified external cause status
CPT/HCPCS: 12001; 99282; 99284

== ENCOUNTER 2025-01-13 08:16 | Outpatient (REF) | payer MEDICAID, SELFPAY ==
--- OUTSIDE RECORDS SUMMARY | 2023-10-06 11:45 | XMS_ITS | Continuity of Care Document ---
Author Organization [facility] Address [address] [place] [id number] Phone Care Team Providers Care Data Acquisition Technician Name Role Phone Naren FARLEY, RVT, AKILAH, Trung Unavailable U navailable Procedures Procedure Date Office/Outpt E&M Established 15 Mins- CT & MA Duplex Scan-extrem Veins; Comp- CT & MA Phleb Veins - Extrem - To 20- CT & MA Ma Inj Scleros Solut; Mx Veins 1- CT & MA M Duplex Scan-extrem Veins; 24 Endovenous Laser, 1st Vein Phleb Veins - Extrem 20+ Inj Scleros Solut; Mx Veins 1 4 Duplex Scan-extrem Veins; / 24 Endovenous Laser, 1st Vein Endovenous Laser, 1st Vein Ultrason Guidan Needle Bx-rad 4 Inj Sclerosing Solution; Sngl 4 Offic/outpt E&m Estab 5 Min Trial - Tele medicine Duplex Scan-extrem Veins; Comp Office/Oupt E&M New Pt 45 Mins Advance Directives Directive Yes / No Effective Date File Name No Information Encounters Encounter Description Practice Location Reason(s) For Visit Diagnoses Date Provider Providers Copied on Encounter Office/Outpt E&M Established 15 Mins- CT & [place] [facility] MD FERGUSON, [address] [place] [address] Dr [place] [address]SuRamos syed [place], [id number], [place] tel:[phone] [place] - [place] Varicose veins of bilateral lower extremities with other complications Cramp and spasmRestless legs syndromePruri tus, unspecified Apr-0 2 4 Naren FARLEY RVT, AKILAH Nino. [address] [place] [address], [place], [place], [id number], [place]. tel:[phone] Referring Provider: Josephine Watkins NP, [address] [place] [address] [address], [place], [address]. tel:[phone] [facility], [address] [place] [address] Dr Lockett [address]SuRamos syed [place], [id number], [place] tel:[phone] [facility] - [place] Chronic venous hypertension (idiopathic) with other complications of bilateral lower extremity Apr-0 4 Naren FARLEY RVT, AKILAH Nino. [address] [place] [address], [place], [place], [id number], [place]. tel:[phone] Referring Provider: Josephine Watkins PHP WEBSITE DEVELOPER, [address] [place] [address] [address], [place], [address]. tel:[phone] [facility], [address] [place] [address] Dr Lockett [address]Suite Ramos Aqu[place], [id number], [place] tel:[phone] [facility] - [place] Varicose veins of right lower extremity with other complications Sep-2 0- 4 Kenya Oneill. [address] [place] [address], [place], [place], [id number], [place]. tel:[phone] Referring Provider: Josephine Watkins NP, [address] [place] [address] [address], [place], [address]. tel:[phone] [facility], [address] [place] [address] Dr Lockett [address]Suite Ramos Aquino [place], [id number], [place] tel:[phone] CVR - [place] Encounter for follow-up examination after completed treatment for conditions other than malignant neVaricose veins of right lower extremity with pain Mar-2 0- 4 Naren FARLEY RVT, AKILAH Nino. [address] [place] [address], [place], [id number], [place]. tel:[phone] Referring Provider: Josephine Watkins NP, [address] [place] [address] [address], [place], [address]. tel:[phone] [facility], [address] [place] [address] [address] [address]Ramos [place], [id number], [place] tel:[phone] CVR - [place] Varicose veins of right lower extremity with other complications Mar-1 3- 4 Naren FARLEY RVT, AKILAH Nino. [address] [place] [address], [place], [id number], [place]. tel:[phone] Referring Provider: Josephine Watkins NP, [address] [place] [address] [address], [place], [address]. tel:[phone] [facility], [address] [place] [address] [address] 1000Ramos [place], [id number], [place] tel:[phone] CVR - [place] Varicose veins of left lower extremity with other complications Mar-0 5- 4 Kenya Oneill. [address] [place] [address] [address], [place], [id number], [place]. tel:[phone] Referring Provider: Josephine Watkins NP, [address] [place] [address] [address], [place], [address]. tel:[phone] [facility], [address] [place] [address] [address] [address]Ramos [place], [id number], [place] tel:[phone] CVR [place] Encounter for follow-up examination after completed treatment for conditions other than malignant neVaricose veins of left lower extremity with pain Mar-0 5- 4 Naren FARLEY RVT, AKILAH Nino. [address] [place] [address] [address], [place], [id number], [place]. tel:[phone] Referring Provider: Josephine Watkins NP, [address] [place] [address] [address], [place], [address]. tel:[phone] [facility], [address] [place] [address] Dr [address]ett [address]Ramos syed [place], [id number], [place] tel:[phone] CVR - [place] Chronic venous hypertension (idiopathic) with inflammation of left lower extremity Sep-0 4 Naren FARLEY RVT, AKILAH Nino. [address] [place] [address], [place], [id number], [place]. tel:[phone] Referring Provider: Josephine Watkins NP, [address] [place] [address] [address], [place], [address]. tel:[phone] [facility] MD FERGUSON, [address] [place] [address] Dr Lockett [address]Ramos syed [place], [id number], [place] tel:[phone] CVR - [facility] Varicose veins of left lower extremity with other complications 4 Naren FARLEY RVT, AKILAH Nino. [address] [place] [address], [place], [id number], [place]. tel:[phone] Referring Provider: Josephine Watkins NP, [address] [place] [address] [address], [place], [address]. tel:[phone] Offic/outpt E&m Estab 5 Min Trial - Telemedicine [facility], [address] [place] [address] Dr [address] [address]SuRamos syed [place], [id number], [place] tel:[phone] CV[place] - [place] Localized edemaCramp and spasmRestless legs syndromeVenou s insufficiency (chronic) (peripheral)P ruritus, unspecified 3 Kenya Oneill. [address] [place] [address], [place], [id number], [place]. tel:[phone] Referring Provider: Josephine Watkins NP, [address] [place] [address] [address], [place], [address]. tel:[phone] [facility], [address] [place] [address] Dr [address] [place], [id number], [place] tel:[phone] [place] - [place] Varicose veins of bilateral lower extremities with pain Sep- 3 Ru FARLEY FACS RVT AKILAH Garza. [address], [address], [facility] [place], [address], [place]. tel:[phone] Referring Provider: Josephine Watkins PHP WEBSITE DEVELOPER, [address] [place] [address] [address], [place], [address]. tel:[phone] Office/Oupt E&M New Pt 45 Mins [facility], [address], [place], [id number], [place] tel:[phone] CV[place] - [place] Varicose veins of bi low extrem w oth complications Pain in right lower legPain in left lower legPain in right legRestless legs syndromePruri tus, unspecifiedPa in in left legCramp and spasmLocalize d edema Mar- 3 Naren FARLEY, RVT, AKILAH Nino. [facility], [address], [facility] [place], [id number], [place]. tel:[phone] Referring Provider: Josephine Watkins PHP WEBSITE DEVELOPER, [address] [place] [address] [address], [place], [address]. tel:[phone] Family History Family Member Type Diagnosis Age At Onset No Information Payers Payer name Insurance type Covered libertarian ID Authoriza tiroshan(s) Medical Assistance [facility] [id number] Social History Type Description Quantity Date Captured Comments Alcohol Use Details Unknown Caffeine Use Details Unknown Tobacco Use Status No Information Smoking Status Former Smoker Non-Smoking Tobacco Use Details : No Details Available : No Details Available Sex Female Vital Signs Date / Time: Height Weight BMI Pulse Rate Blood Pressure Temperature Respiratory Rate Body Surface Area Head Circumference Head Circ. Percentile Wt./Mikael. Percentile BMI percentile Pulse Ox Inhaled Ox 104.330 kg (230.00 lbs) 40.8 0 kg/m eter (2) 132/82 mm[Hg] Chief Complaint And Reason For Visit No Information Reason For Referral Reason For Referral No Information Plan Of Treatment Date Type Action Status Goal Tobacco cessation counseling completed Goal Diet education completed Goal Tobacco cessation counseling completed Goal Tobacco cessation counseling completed Goal Diet education completed Referral Ordered: Weight management: Referral to physician timeframe: 3 Months (related to Body mass index (BMI) 40.0-44.9, adult) ordered Referral Ordered: Weight management: Referral to physician timeframe: 3 Months (related to Body mass index (BMI) 40.0-44.9, adult) ordered History Of Present Illness Encounter Date Complaint History Of Prese nt Illness No Information Functional Status Date Functional Assessmen t No Information Instructions Date Instruction Additional Infor mation Patient education booklet given Related to Varicose veins of bilateral lower extremities with other complications Compression stocking usage as conservative measure Related to Varicose veins of bilateral lower extremities with other complications Lifestyle education Related to B dariela mass index (BMI) 40.0-44.9, adult Giving Encouragement to exercise Related to Body mass index (BMI) 40.0-44.9, adult Diet education Related to Body mass index (BMI) 40.0-44.9, adult Pre and post instruc tions reviewed and provided Related to Localized edema Patient education booklet given Related to Localized edema Pre and post instruc tions reviewed and provided Related to Varicose veins of bi low extrem w oth complications Patient education booklet given Related to Varicose veins of bi low extrem w oth complications Lifestyle education Related to B dariela mass index (BMI) 40.0-44.9, adult Giving Encouragement to exercise Related to Body mass index (BMI) 40.0-44.9, adult Diet education Related to Body mass index (BMI) 40.0-44.9, adult Assessments Type Assessment Date No Information Patient Care Teams Name Effective Dates (start - stop) Status Members No Information
--- NOTE | ~2025-01-13 | MM_ITS ---
EXAMINATION: MM SCREENING DIGITAL BREAST TOMOSYNTHESIS, BILATERAL CLINICAL INFORMATION: Screening. Asymptomatic. COMPARISON: Mammography: Comparison is made with available priors TECHNIQUE: Digital breast mammography with tomosynthesis is performed in both the craniocaudal and mediolateral oblique views along with computer-aided detection (CAD). FINDINGS: There are scattered areas of fibroglandular density (ACR BI-RADS breast composition Category b). There are no significant masses, abnormal calcifications, or other abnormalities. MM/MM tomosynthesis screening BI IMPRESSION: No mammographic evidence of malignancy. ASSESSMENT: BI-RADS BI-RADS 1 - Negative RECOMMENDATION: Routine annual mammography screening. 1 year F/U This examination should not preclude the clinical evaluation of a suspicious palpable abnormality. This patient's information was entered into a reminder system with a target due date for their next mammogram. Electronically signed by: Gladys Grider DO 01/24/2025 05:23 PM EDT
--- OUTSIDE RECORDS SUMMARY | 2025-01-13 08:20 | XMS_ITS | Clinical Summary ---
Author Organization [employer] Address [address] [facility] [address] [place] [address] Care Team Providers Care Foam Rubber Mixer Name Role Phone Josephine Watkins SRUTHI Primary Care Provider [phone] Allergies No known active allergies Medications fluticasone (Flonase) 50 MCG/ACT nasal spray SPRAY 2 SPRAYS INTO EACH NOSTRIL TODOS LOS D 3 Active loratadine (Claritin) 10 MG tablet TOME SEBAS TABLETA TODOS LOS D CUANDO SEA NECESARIO 3 Active cyanocobalamin (Vitamin B-12) 1000 MCG tablet Take 1 tablet by mouth Once daily. 2 Active Senna-Time 8.6 MG tablet Take 2 tablets by mouth Once daily as needed. 3 Active traZODone (Desyrel) 100 MG tablet Take 100 mg by mouth at bedtime. 3 Active lisinopril 10 MG tabletIndications :Essential hypertension Take 1 tablet (10 mg) by mouth Once daily. 90 tablet 3 4 Active Blood Pressure kitIndications:Es sential hypertension 1 kit in the morning. 1 kit 4 Active Active Problems Problem Noted Date Diagnosed Date Viral syndrome 09/27/2024 Assessment & Plan (09/27/2024 2:45 PM EDT): Exam benign. Suspect muscle aches and pains from viral syndrome. -no evidence of acute dehydration. -recommended supportive care and adequate fluid intake. Essential hypertension 03/31/2022 3 Depressive disorder 11/21/2011 06/23/2023 Pure hypercholesterolemia 11/21/20112022 Kidney stone 11/21/2011 07/13/2023 Obesity 11/21/2011 07/13/2023 Immunizations Immunization Administration Dates Next Due Hep B, adult 10/28/2017,06/03/2007,02/12/2004 Influenza Injectable Quadriv alant Preservative Free IIV4 MDCK 06/22/2023,04/09/2022 Influenza injectable quadriv alent IIV4 with preservative 04/10/2016,03/23/2015 Influenza injectable quadriv alent preservative free 08/23/2020,06/16/2019,06/07/2018 Influenza, IIV3, injectable 04/12/2014, 1 Influenza, live, intranasal 06/03/2007 TD (adult), 2 Lf tetanus tox oid, preservative free, adsorbed 02/12/2004 Tdap 03/23/2015 Zoster, Recombinant 04/09/2022 Social History Tobacco Use Types Packs/Day Years Used Date Smoking Tobacco: Former Cigarettes Q uit: 2018 Smokeless Tobacco: Never Alcohol Use Standard Drinks/Week Comments Yes 20 (1 standard drink = 0.6 oz pu re alcohol) Depression Answer Date Recorded Patient Health Questionnaire-9 Score 18 07/13/2023 Patient Health Questionnaire-9 Score 18 07/13/2023 Last PHQ-9: Questionnaire Data Not on file 0 07/13/2023 Housing Stability Answer Date Recorded What is your housing situation today? I have galo cavazos 07/13/[address] you li ve. Do you have problems with any of the following? None of the above 07/13/2023 Food Insecurity Answer Date Recorded Within the past 12 months, y ou worried that your food would run out before you got money to buy more: Never True 07/13/2023 Within the past 12 months,th e food you bought just didn't last and you didn't have enough money to get more: Never True 02/2024 Transportation Answer Date Recorded In the past 12 months, has l ack of transportation kept you from medical appts, meetings, work or from getting things needed for daily living? No 07/13/2023 Utilities Answer Date Recorded In the past 12 months, has t he electric, gas, oil or water company threatened to shut off services in your home? No 07/13/2023 Depression Answer Date Recorded Patient Health Questionnaire-2 Score 4 07/13/2023 Comments No Sex and Gender Information Value Date Recorded Sex Assigned at Female 05/05/2022 10:16 AM EDT Legal Sex Female 10:16 AM EDT Gender Identity Female 05/05/2022 10:16 AM EDT Sexual Orientation Straight 05/05/2022 10 :16 AM EDT Last Filed Vital Signs Vital Sign Reading Time Taken Comments Blood Pressure 144/81 09/27/2024 1:11 PM EDT Pulse 70 09/27/2024 1:11 PM EDT Temperature 36.8 C (98.2 F) 09/27/2024 1:11 PM EDT Respiratory Rate 16 09/27/2024 1:11 PM EDT Oxygen Saturation 99% 09/27/2024 1:11 PM EDT Inhaled Oxygen Concentration - - Weight 106 kg (233 lb) 09/27/2024 1:11 PM EDT Height 157.5 cm (5' 2 ) 07/13/2023 1:15 PM EST Body Mass Index 42.62 07/13/2023 1:15 PM EST Plan of Treatment Health Maintenance Due Date Last Done Comments CT Colonography 1968 FIT DNA/Cologuard 1968 FIT 1968 FOBT 1968 Sigmoidoscopy 1968 Disability Screening 1968 Alcohol/Substance Use Screening 1980 Pneumococcal Vaccine: 50+ Years (1 of 1 - PCV) 2018 Zoster Vaccines (2 of 2) 06/04/2022 04/09/2022 Mammogram 09/06/2022 09/06/2020, 03/10/2020, 08/29/2019, Additional history exists Depression Monitoring 01/11/2024 07/13/2023, 024 COVID-19 Vaccine (2 - season) 2024 06/23/2023 SDOH Screening 07/13/2024 07/13/2023 Tobacco Screening 09/17/2024 09/18/2023 Influenza Vaccine (#1) 2025 3, 04/09/2022, 08/23/2020, Additional history exists DTaP/Tdap/Td Vaccines (2 - Td or Tdap) 03/23/2025 03/23/2015, 02/12/2004 Colonoscopy 04/12/2025 04/12/2020 Colorectal Cancer Screening 04/12/2025 Pap Smear 08/18/2026 08/18/2023 Lipid Panel 07/14/2028 07/14/2023, 03/07, 09/07/2020 Cervical Cancer Screening 08/18/2028 HPV/Cotest 08/18/2028 08/18/2023 RSV Patients and Patients Aged 60 years or older (1 - 1-dose 75+ series) 2043 Hepatitis B Vaccines Completed 10/28/2017, 06/03/2007, 02/12/2004 HIV Screening Completed 09/07/2020 Hepatitis C Screening Completed 09/07/2020 HIB Vaccines Aged Out No longer eligi ble based on patient's age to complete this topic HPV Vaccines Aged Out No longer eligi ble based on patient's age to complete this topic Hepatitis A Vaccines Aged Out No long er eligible based on patient's age to complete this topic IPV Vaccines Aged Out No longer eligi ble based on patient's age to complete this topic Meningococcal B Vaccine Aged Out No l onger eligible based on patient's age to complete this topic Meningococcal Vaccine Aged Out No kaylyn enio eligible based on patient's age to complete this topic RSV under 20 months Aged Out No longe r eligible based on patient's age to complete this topic Rotavirus Vaccines Aged Out No longer eligible based on patient's age to complete this topic Procedures Procedure Name Priority Date/Time Associated Diagnosis Comments HPV MRNA E6/E7 REFLEX TO HPV 16, 18/45 Routine 08/18/2023 8:30 AM EST PAP SMEAR Routine 08/18/2023 8:30 AM EST LIPID PANEL, STANDARD Routine 07/14/2023 9:53 AM EST Lipid screening ZZZ HISTORICAL HEPATITIS C AB W/REFL TO HCV RNA, QN, PCR Routine 09/07/2020 1:01 PM EST HIV 1/2 ANTIGEN/ANTIBODY, FOURTH GENERATION W/RFL Routine 09/07/2020 1:01 PM EST MAMMOGRAM GENERIC Routine 09/06/2020 1:0 0 PM EST HM COLONOSCOPY Routine 04/12/2020 10:39 AM EDT from Last 3 Months or Most Recently Relevant to Health Maintenance Results * HPV mRNA E6/E7 w/Reflex to HPV Genotypes 16, 18/45 (08/18/2023 8:30 AM EST) HPV nRNA E6/E7 Not Detected Not Detected [facility] Comment:Methodology: Transcr iption-Mediated AmplificationThis assay detects E6/E7 viral messenger RNA (mRNA) from 14high-risk HPV types (16,18,31,33,35,39,45,51,52,56,58,59,66,68).Cervical sources are required for HPV testing.If a vaginal source from a patient who has had atotal hysterectomy with removal of cervix wassubmitted, please contact the testing laboratoryfor alternative testing options.For additional information, please refer tohttp://education.[employer]Media/faq/GIF614w6(This link if provided for information/educational purposes only.)THIS TEST WAS PERFORMED AT:[facility] [place] [id number] GODOY MD HPV mRNA E6/E7 [facility] HPV 16 RNA [facility] HPV 18/45 RNA [facility] 08/18/2023 8:30 AM EST 08/19/2023 9:45 AM EST us Generic External Data Provider LAB CYTOLOGY ORDE RABLES Final Result [facility] [address] [place] [phone] * Pap Smear (08/18/2023 8:30 AM EST) 08/18/2023 8:30 AM EST 08/19/2023 9:45 AM EST Narrative [facility] - 09/01/2023 1:21 PM EST ----- ------- Name: Birgit Dixon Age/Sex: 53/F [facility] 1970 [id number] [id number] Attend Dr: Dionicio Berger MD Re08/18/23 Status: [facility] Location: [facility] Disch: ----- ------- SPEC : [id number] RECD: 08/19/23-45 STATUS: ERMA BROWERVazquez NUM: [id number] JEYSON: 08/18/23 [facility] DR: Dionicio Berger MD ENTERED: 08/19/23-1155 SP TYPE: Pap Smr OTHR DR: ORDERED: Pap Smear Interpretation Satisfactory for evaluation. No endocervical cells seen. Coccobacilli consistent with shift in vaginal alisson. Negative for intraepithelial lesion or malignancy. HPV mRNA E6/E7: NOT DETECTED This assay detects E6/E7 viral messenger RNA (mRNA) from 14 high-risk HPV types (16, 18, 31, 33, 35, 39, 45, 51, 52, 56, 58, 59, 66, 68) HPV testing performed by [facility], [place], [place]. See reference laboratory portion of the EMR for entire report. Clinical Information LMP: Postmenopausal Previous PAP test: Unknown date/findings Material Received ThinPrep-Cervical ----- ------- Signed (signature on file) KARMA Shen ([facility]) 09/01/23 1321 ----- ------- END OF REPORT us Generic External Data Provider LAB CYTOLOGY BOBBY CAMEJO Final Result [facility] [address] [place] [phone] * (ABNORMAL) Lipid Panel, Standard (07/14/2023 9:53 AM EST) Triglycerides 107 <150 mg/dL [facility] Comment:Desirable Triglyceri de: less than 150 mg/dLBorderline High Triglyceride 150-199 mg/dLHigh Triglyceride: 200-499 mg/dLVery High Triglyceride: greater than or equal to 5OO mg/dL Cholesterol 229(H) <200 mg/dL [facility] Comment:Desirable Cholestero l: less than 200 mg/dLBorderline High Cholesterol: 200-239 mg/dLHigh Cholesterol: greater than 239 mg/dL LDL Cholesterol Calculated 144(H) <100 mg/dL [facility] Comment:Desirable LDL: less than 100 mg/dLNear Optimal/Above Optimal LDL: 110- 129 mg/dLBorderline High LDL: 130-159 mg/dLHigh LDL: 160-189 mg/dLVery High LDL: greater than or equal to 190 mg/dL HDL Cholesterol 64 >40 mg/dL [facility] Comment:Desirable HDL: great er than 40 mg/dL Note: This HDL assay may give artificially low results in patients with liver disease. Blood Venous blood specimen / Unknown 07/14/2023 9:53 AM EST 07/14/2023 11:23 AM EST Josephine Watkins ANP LAB BLOOD ORDERABLES Final Resul t [facility] [address] [place] [phone] * HEPATITIS C AB W/REFL TO HCV RNA, QN, PCR (09/07/2020 1:01 PM EST) HEPATITIS C ANTIBODY NON-REACT CAMERON NON-REACT CAMERON [facility] INDEX 0.02 <1.00 [facility] Comment: HCV antibody was non-reactive. There is no laboratory evidence of HCV infection. In most cases, no further action is required. However, if recent HCV exposure is suspected, a test for HCV RNA (test code 66863) is suggested. For additional information please refer to http://education.SafeMedia/faq/ZEP62d2 (This link is being provided for informational/ educational purposes only.) 09/07/2020 1:01 PM EST us Josephine Watkins ANP HISTORICAL/NON ORDERABLE LABS Fi nal Result [facility] [address] * HIV 1/2 ANTIGEN/ANTIBODY,FOURTH GENERATION W/RFL (09/07/2020 1:01 PM EST) HIV-1/2 ANTIGEN AND ANTIBODIES, 4TH GENERATION W/ REFLEX NON-REACT [facility]ON NON-REACT [facility] Comment: HIV-1 antigen and HIV-1/HIV-2 antibodies were not detected. There is no laboratory evidence of HIV infection. PLEASE NOTE: This information has been disclosed to you from records whose confidentiality may be protected by state law. If your state requires such protection, then the state law prohibits you from making any further disclosure of the information without the specific written consent of the person to whom it pertains, or as otherwise permitted by law. A general authorization for the release of medical or other information is NOT sufficient for this purpose. For additional information please refer to http://education.SafeMedia/faq/UAJ232 (This link is being provided for informational/ educational purposes only.) The performance of this assay has not been clinically validated in patients less than 2 years old. 09/07/2020 1:0 1 PM EST Josephine NEGRO LAB BLOOD ORDERABLES Final Resul t [facility] [address] * Mammography Report 1 (09/06/2020 1:00 PM EST) Anatomical Region Laterality Modality Breast Bilateral Mammography 09/06/2020 1:00 PM EST Narrative 09/09/2021 8:58 AM EST Refer to the Notes tab for result details [facility] Procedure: Mammography Report 1 Procedure Note Provider, Lindsay, - 09/27/2022 Refer to the Notes tab for result details [facility] Procedure: Mammography Report 1 us Josephine Watkins ANP IMG BI PROCEDURES Final Result * Hm Colonoscopy (04/12/2020 10:39 AM EDT) Historical Provider HEALTH MAINTENANCE Final Result from Last 3 Months or Most Recently Relevant to Health Maintenance Insurance [facility] C3 Care Teams Foam Rubber Mixer Relationship Specialty Start Date End Date Josephine Watkins ANP [address] [place] [phone] PCP - General Family Medicine 02/16/20
== END 2025-01-13 08:17 | disposition home or self-care (01) ==
LOC: HO.MAMMO 08:16
PROVIDERS: PCP Nurse Practitioner Primary Care; Visit Provider Nurse Practitioner Primary Care
DX: Z12.31 Encounter for screening mammogram for malignant neoplasm of breast (principal)
CPT/HCPCS: 77063; 77067

== ENCOUNTER → 2025-01-13 08:30 | Outpatient (BNV) | payer MEDICAID, SELFPAY | PROVIDERS: PCP Nurse Practitioner Primary Care; Visit Provider Internal Medicine | DX: Z12.31 Encounter for screening mammogram for malignant neoplasm of breast (principal) | CPT/HCPCS: 77063; 77067 ==

== ENCOUNTER 2025-02-28 08:42 | Outpatient (REF) | payer MEDICAID, SELFPAY ==
--- OUTSIDE RECORDS SUMMARY | 2023-10-06 11:45 | XMS_ITS | Continuity of Care Document ---
Author Organization [facility] Address [address] [place] [id number] Phone Care Team Providers Care Warp Dyeing Vat Tender Name Role Phone Naren FARLEY, RVT, AKILAH, [...] Mins- [place] & [place] [facility] MD FERGUSON, [address] [place] [address] Dr Lockett 1000SuRamos syed [place], [id number], [place] tel:[phone] [facility] - [place] Varicose veins of bilateral lower extremities with other complications Cramp and spasmRestless legs syndromePruri tus, unspecified Apr-0 2 4 Naren FARLEY RVT, AKILAH Nino. [address] [place] [address], [place], [place], [id number], [place]. tel:[phone] Referring Provider: Josephine Watkins NP, [address] [place] [address] [address], [place], [address]. tel:[phone] [facility], [address] [place] [address] Dr Lockett 1000SuRamos syed [place], [id number], [place] tel:[phone] [facility] [place] Chronic venous hypertension (idiopathic) with other complications of bilateral lower extremity Apr-0 4 Naren FARLEY RVT, AKILAH Nino. [address] [place] [address], [place], [place], [id number], [place]. tel:[phone] Referring Provider: Josephine Watkins PLANER OFFBEARER, [address] [place] [address] [address], [place], [address]. tel:[phone] [facility], [address] [place] [address] Dr Lockett 1000Suite Ramos Aquino [place], [id number], [place] tel:[phone] [place] Varicose veins of right lower extremity with other complications Sep-2 0- 4 Kenya Oneill. [address] [place] [address], [place], [place], [id number], [place]. tel:[phone] Referring Provider: Josephine Watkins NP, [address] [place] [address] [address], [place], [address]. tel:[phone] [facility], [address] [place] [address] Dr Lockett 1000Suite Ramos Aquino [place], [id number], [place] tel:[phone] [facility] - [place] Encounter for follow-up examination after completed treatment for conditions other than malignant neVaricose veins of right lower extremity with pain Mar-2 0- 4 Naren FARLEY RVT, AKILAH Nino. [address] [place] [address], [place], [id number], [place]. tel:[phone] Referring Provider: Josephine Watkins NP, [address] [place] [address] [address], [place], [address]. tel:[phone] [facility], [address] [place] [address] [address] 1000Ramos [place], [id number], [place] tel:[phone] [place] Varicose veins of right lower extremity with other complications Mar-1 3- 4 Naren FARLEY RVT, AKILAH Nino. [address] [place] [address], [place], [id number], [place]. tel:[phone] Referring Provider: Josephine Watkins NP, [address] [place] [address] [address], [place], [address]. tel:[phone] [facility], [address] [place] [address] [address] 1000Ramos [place], [id number], [place] tel:[phone] [facility] Varicose veins of left lower extremity with other complications Mar-0 5- 4 Kenya Oneill. [address] [place] [address] [address], [place], [id number], [place]. tel:[phone] Referring Provider: Josephine Watkins NP, [address] [place] [address] [address], [place], [address]. tel:[phone] [facility], [address] [place] [address] 1000[address] 1000Ramos [place], [id number], [place] tel:[phone] [facility] Encounter for follow-up examination after completed treatment for conditions other than malignant neVaricose veins of left lower extremity with pain Mar-0 5- 4 Naren FARLEY RVT, AKILAH Nino. [address] [place] [address] 302, [place], [id number], [place]. tel:[phone] Referring Provider: Josephine Watkins NP, [address] [place] [address] [address], [place], [address]. tel:[phone] [facility], [address] [place] [address] Dr Lockett 1000Ramos syed [place], [id number], [place] tel:[phone] [facility] Chronic venous hypertension (idiopathic) with inflammation of left lower extremity Sep-0 4 Naren FARLEY RVT, AKILAH Nino. [address] [place] [address], [place], [id number], [place]. tel:[phone] Referring Provider: Josephine Watkins NP, [address] [place] [address] [address], [place], [address]. tel:[phone] [facility] MD FERGUSON, [address] [place] [address] Dr Lockett 1000Ramos syed [place], [id number], [place] tel:[phone] CVR - [facility] Varicose veins of left lower extremity with other complications 4 Naren FARLEY RVT, AKILAH Nino. [address] [place] [address], [place], [id number], [place]. tel:[phone] Referring Provider: Josephine Watkins NP, [address] [place] [address] [address], [place], [address]. tel:[phone] Offic/outpt E&m Estab 5 Min Trial - Telemedicine [facility], [address] [place] [address] Dr Lockett 1000SuRamos syed [place], [id number], [place] tel:[phone] [facility] Localized edemaCramp and spasmRestless legs syndromeVenou s insufficiency (chronic) (peripheral)P ruritus, unspecified 3 Kenya Oneill. [address] [place] [address], [place], [id number], [place]. tel:[phone] Referring Provider: Josephine Watkins NP, [address] [place] [address] [address], [place], [address]. tel:[phone] [facility], [address] [place] [address] Dr Lockett [address] [place], [id number], [place] tel:[phone] [facility] Varicose veins of bilateral lower extremities with pain Sep- 3 Ru FARLEY FACS RVT AKILAH Garza. [address] [facility], [address], [place], [address], [place]. tel:[phone] Referring Provider: Josepihne Watkins PLANER OFFBEARER, [address] [place] [address] [address], [place], [address]. tel:[phone] Office/Oupt E&M New Pt 45 Mins [facility], [address], [place], [id number], [place] tel:[phone] [facility] [place] Varicose veins of bi low extrem w oth complications Pain in right lower legPain in left lower legPain in right legRestless legs syndromePruri tus, unspecifiedPa in in left legCramp and spasmLocalize d edema Mar- 3 Naren FARLEY, RVT, AKILAH Nino. [facility] [facility], [address], [facility] [place], [id number], [place]. tel:[phone] Referring Provider: Josephine Watkins PLANER OFFBEARER, [address] [place] [address] [address], [place], [address]. tel:[phone] Family History Family Member Type Diagnosis Age At Onset No Information Payers Payer name Insurance type Covered green party ID Authoriza tiroshan(s) Medical Assistance [facility] [id number] Social History Type Description Quantity Date Captured [...]
--- OUTSIDE RECORDS SUMMARY | 2025-02-27 14:15 | XMS_ITS | Encounter Summary ---
Author Organization [facility] [facility] Address [address] [place] [address] [address] [place] [address] Care Team Providers Care Scout Professional Sports Name Role Phone Josephine Watkins Primary Care Provider [phone] Reason for Referral * Consultation (Urgent) - Authorized Specialty Diagnoses / Procedures Referred By Jazz garduno Referred To Contact Behavioral Health Diagnoses Stress Anxiety Josephine Watkins ANP [address] [place], [place] Phone: tel: fax: Referral ID Status Reason Start Date Expiration Date Visits Requested Visits Authorized [id number] Authorized Specialty Services Required 02/27/2025 02/27/2026 1 1 * Consultation (Routine) - Authorized Specialty Diagnoses / Procedures Referred By Jazz garduno Referred To Contact Dermatology Diagnoses [place] of foot Josephine Watkins ANP [address] [place], [place] Phone: tel: fax: Referral ID Status Reason Start Date Expiration Date Visits Requested Visits Authorized [id number] Authorized Specialty Services Required 02/27/2025 02/27/2026 1 1 Reason for Visit * Reason Comments Follow-up Encounter Details Date Type Department Care Team (Late st Contact Info) Description 02/27/2025 2:15 PM EDT Office Visit [facility] [address] [place], [place] [phone] Josephine Watkins ANP [address] [place], [place] Essential hypertension (Primary Dx); Pure hypercholesterolemia; Difficulty sleeping; [place] of foot; Stress; Anxiety; B12 deficiency Social History Tobacco Use Types Packs/Day Years Used Date Smoking Tobacco: Former Cigarettes Q uit: 2018 Smokeless Tobacco: Never Alcohol Use Standard Drinks/Week Comments Yes 20 (1 standard drink = 0.6 oz pu re alcohol) Depression Answer Date Recorded Patient Health Questionnaire-9 Score 11 02/03/2025 Patient Health Questionnaire-9 Score 11 02/03/2025 Last PHQ-9: Questionnaire Data Not on file 0 02/03/2025 Housing Stability Answer Date Recorded What is your housing situation today? I have galo cavazos 02/03/[address] you li ve. Do you have problems with any of the following? None of the above 02/03/2025 Food Insecurity Answer Date Recorded Within the past 12 months, y ou worried that your food would run out before you got money to buy more: Never True 02/03/2025 Within the past 12 months,th e food you bought just didn't last and you didn't have enough money to get more: Never True 07/2024 Transportation Answer Date Recorded In the past 12 months, has l ack of transportation kept you from medical appts, meetings, work or from getting things needed for daily living? No 02/03/2025 Utilities Answer Date Recorded In the past 12 months, has t he electric, gas, oil or water company threatened to shut off services in your home? No 02/03/2025 Depression Answer Date Recorded Patient Health Questionnaire-2 Score 3 02/03/2025 Internet Access Answer Date Recorded Internet Access Q1 Yes 02/03/2025 Internet Access Q2 Not on file 02/03/2025 Comments No Sex and Gender Information Value Date Recorded Sex Assigned at Female 05/05/2022 10:16 AM EDT Legal Sex Female 10:16 AM EDT Gender Identity Female 05/05/2022 10:16 AM EDT Sexual Orientation Straight 05/05/2022 10 :16 AM EDT documented as of this encounter Last Filed Vital Signs Vital Sign Reading Time Taken Comments Blood Pressure 140/100 02/27/2025 2:12 PM EDT Pulse 67 02/27/2025 2:12 PM EDT Temperature 36.6 C (97.8 F) 02/27/2025 2:12 PM EDT Respiratory Rate 20 02/27/2025 2:12 PM EDT Oxygen Saturation 98% 02/27/2025 2:12 PM EDT Inhaled Oxygen Concentration - - Weight 106 kg (232 lb 12.8 oz) 02/27/2025 2:12 P M EDT Height 157.5 cm (5' 2 ) 02/27/2025 2:12 PM EDT Body Mass Index 42.58 02/27/2025 2:12 PM EDT documented in this encounter Functional Status * Over the last 2 weeks, how often have you been bothered by any of the following problems? Question Answer Date of Assessment Author Feeling nervous, anxious, or on edge 1 02/27/2025 2:47 PM EDT Maryann Pandey MA Not being able to stop or co ntrol worrying 3 02/27/2025 2:47 PM EDT Maryann Pandey MA Worrying too much about diff erent things 2 02/27/2025 2:47 PM EDT Maryann Pandey MA Trouble relaxing 2 02/27/2025 2:47 PM EDT Maryann David MA Being so restless that it is hard to sit still 3 02/27/2025 2:47 PM EDT Maryann Pandey MA Becoming easily annoyed or irritable 2 02/27/2025 2:47 PM EDT Maryann Pandey MA Feeling afraid as if somethi ng awful might happen 1 02/27/2025 2:47 PM EDT Maryann Pandey MA ROBERT-7 Total Score 14 02/27/2025 2:47 PM EDT Maryann Pandey MA documented as of this encounter Plan of Treatment Upcoming Encounters Date Type Department Care Team (Late st Contact Info) Description 03/30/2025 3:30 PM EDT Clinical Support [facility] [address] [place] [address] Scheduled Orders Name Type Priority Associated Diagnoses Orde r Schedule Vitamin B12 Lab Routine B12 deficiency Expected: 02/27/2025 (Approximate), Expires: 02/27/2026 Scheduled Referrals Name Type Priority Associated Diagnoses Order Schedule Referral to Dermatology Outpatient Referral Routine [place] of foot Expected: 02/27/2025 (Approximate), Expires: 02/27/2026 Referral to Behavioral Health Outpatient Referral Urgent Stress Anxiety Expected: 02/27/2025 (Approximate), Expires: 08/27/2026 documented as of this encounter Visit Diagnoses Diagnosis Essential hypertension- Primary Unspecified essential hypertension Pure hypercholesterolemia Difficulty sleeping Unspecified sleep disturbance [place] of foot Stress Other psychological or physical stress, not elsewhere classified Anxiety Anxiety state, unspecified B12 deficiency documented in this encounter Additional Health Concerns Assessment Noted Time PHQ-9 Depression Total Score: 11 025 9:14 AM EDT documented as of this encounter Care Teams Scout Professional Sports Relationship Specialty Start Date End Date Josephine Watkins ANP [address] [place] [address] PCP - General Family Medicine 02/16/20 documented as of this encounter
--- OUTSIDE RECORDS SUMMARY | 2025-02-28 08:55 | XMS_ITS | Encounter Summary ---
Author Organization [employer] Address [address] [facility] [address] [place] [address] Care Team Providers Care Sample Tailor Name Role Phone Josephine Watkins Primary Care Provider [phone] Reason for Visit * Reason Onset Date Comments Med Refill 01/19/2025 Encounter Details Date Type Department Care Team ([facility] st Contact Info) Description 01/19/2025 Refill [facility] [address] [place], [place] [phone] Josephine Watkins ANP [address] [place], [place] [phone] Social History Tobacco Use Types Packs/Day Years [...] AM EDT documented as of this encounter Miscellaneous Notes * Telephone Encounter - Luh Woo LPN - 01/19/2025 2:34 PM EDT Last seen 09.27.24 documented in this encounter Plan of Treatment Upcoming Encounters Date Type Department Care Team (Late st Contact Info) Description 03/30/2025 3:30 PM EDT Clinical Support [facility] [address] [place] [address] documented as of this encounter Visit Diagnoses Not on filedocumented in this encounter Additional Health Concerns Assessment Noted Time PHQ-9 Depression Total Score: 18 024 1:40 PM EST documented as of this encounter Care Teams Sample Tailor Relationship Specialty Start Date End Date Josephine Watkins ANP [address] [place] [address] PCP - General Family Medicine 02/16/20 documented as of this encounter
--- OUTSIDE RECORDS SUMMARY | 2025-02-28 08:55 | XMS_ITS | Encounter Summary ---
Author Organization [employer] Address [address] [facility] [address] [place] [address] Care Team Providers Care Green Chain Puller Name Role Phone Josephine Watkins Primary Care Provider [phone] Reason for Visit * Reason Onset Date Comments CHART PREP 02/24/2025 Encounter Details Date Type Department Care Team ([facility] st Contact Info) Description 02/24/2025 Telephone [facility] [address] [place], [place] [phone] Josephine Watkins ANP [address] [place], [place] [phone] CHART PREP Social History Tobacco Use Types Packs/Day Years [...] encounter Miscellaneous Notes * Telephone Encounter - Ashley Tabor MA - 02/24/2025 3:52 PM EDT Chart Prep Labs: not applicable Images: not applicable Referrals: not applicable Vaccines due: Zoster Screenings: not applicable Overdue care gaps: SBIRT and ROBERT-7 documented in this encounter Plan of Treatment Upcoming Encounters Date Type Department Care Team (Late st Contact Info) Description 03/30/2025 3:30 PM EDT Clinical Support [facility] [address] [place] [address] documented as of this encounter Visit Diagnoses Not on filedocumented in this encounter Additional Health Concerns Assessment Noted Time PHQ-9 Depression Total Score: 11 025 9:14 AM EDT documented as of this encounter Care Teams Green Chain Puller Relationship Specialty Start Date End Date Josephine Watkins ANP [address] [place] [address] PCP - General Family Medicine 02/16/20 documented as of this encounter
--- OUTSIDE RECORDS SUMMARY | 2025-02-28 08:55 | XMS_ITS | Encounter Summary ---
Author Organization [employer] Address [address] [facility] 7t [place] [address] Care Team Providers Care Training Personnel Supervisor Name Role Phone Josephine Watkins Primary Care Provider [phone] Encounter Details Date Type Department Care Team (Late st Contact Info) Description 11/03/2023 Orders Only [facility] [address] [place] [address] Provider, MD Lindsay Social History Tobacco Use Types Packs/Day Years [...] AM EDT documented as of this encounter Plan of Treatment Upcoming Encounters Date Type Department Care Team (Late st Contact Info) Description 03/30/2025 3:30 PM EDT Clinical Support [facility] [address] [place] [address] documented as of this encounter Procedures Procedure Name Priority Date/Time Associated Diagnosis Comments HM COLONOSCOPY Routine 04/12/2020 10:39 AM EDT documented in this encounter Results * Hm Colonoscopy (04/12/2020 10:39 AM EDT) us Historical Provider HEALTH MAINTENANCE Final Result documented in this encounter Visit Diagnoses Not on filedocumented in this encounter Additional Health Concerns Assessment Noted Time PHQ-9 Depression Total Score: 18 024 1:40 PM EST documented as of this encounter Care Teams Training Personnel Supervisor Relationship Specialty Start Date End Date Josephine Watkins ANP [address] [place] [address] PCP - General Family Medicine 02/16/20 documented as of this encounter
--- OUTSIDE RECORDS SUMMARY | 2025-02-28 08:56 | XMS_ITS | Clinical Summary ---
Author Organization [employer] Address [address] [facility] 7t [place] [address] Care Team Providers Care Superintendent Institution Name Role Phone Heidi Mckeon SRUTHI Primary Care Provider [phone] Allergies No known active allergies Medications cyanocobalamin (Vitamin B-12) 1000 MCG tablet Take 1 tablet by mouth Once daily. 02/22/20 22 Active Blood Pressure kitIndications: Essential hypertension 1 kit in the morning. 1 kit 07/13/19 24 Active fluticasone (Flonase) 50 MCG/ACT nasal spray Administer 2 sprays into each nostril Once per day. Shake gently. Before first use, prime pump. After use, clean tip and replace cap.SPRAY 2 SPRAYS INTO EACH NOSTRIL 48 g 01/21/20 25 Active loratadine (Claritin) 10 MG tablet Take 1 tablet (10 mg) by mouth Once per day. TAKE 1 TABLET BY MOUTH EVERYDAY as needed 90 tablet 01/21/20 25 Active Senna-Time 8.6 MG tablet Take 2 tablets (17.2 mg) by mouth Once daily as needed for constipation. 180 tablet 01/21/20 25 Active losartan (Cozaar) 50 MG tabletIndicatio ns:Essential hypertension Take 1 tablet (50 mg) by mouth Once per day. 90 tablet 1 02/28/20 25 026 Active traZODone (Desyrel) 100 MG tabletIndicatio ns:Difficulty sleeping Take 1 tablet (100 mg) by mouth at bedtime. 90 tablet 02/28/20 25 Active traZODone (Desyrel) 100 MG tablet Take 100 mg by mouth at bedtime. 09/15/19 23 025 Discontinued(R eorder (will not trigger notification to Pharmacy)) lisinopril 10 MG tabletIndicatio ns:Essential hypertension Take 1 tablet (10 mg) by mouth Once daily. 90 tablet 3 07/13/19 24 025 Discontinued(I neffective) losartan (Cozaar) 25 MG tabletIndicatio ns:Essential hypertension Take 1 tablet (25 mg) by mouth Once per day. 90 tablet 1 02/04/20 25 025 Discontinued Active Problems Problem Noted Date Diagnosed Date Viral syndrome 09/27/2024 Assessment & Plan (09/27/2024 2:45 PM EDT): Exam benign. Suspect muscle aches and pains from viral syndrome. -no evidence of acute dehydration. -recommended supportive care and adequate fluid intake. Essential hypertension 03/31/2022 Depressive disorder 11/21/2011 06/23/2023 Pure hypercholesterolemia 11/21/20112022 Kidney stone 11/21/2011 07/13/2023 Obesity 11/21/2011 07/13/2023 Encounters Date Type Department Care Team Description 02/27/2025 2:15 PM EDT Office Visit [address] [address] Heidi Mckeon ANP Essential hypertension (Primary Dx); Pure hypercholesterolemia; Difficulty sleeping; Anderson of foot; Stress; Anxiety; B12 deficiency 02/27/2025 Travel 02/24/[address] [address] Heidi Mckeon ANP CHART PREP 02/03/2025 9:00 AM EDT Office Visit [address] [address] Heidi Mckeon ANP Essential hypertension (Primary Dx); Pure hypercholesterolemia; Stress; Routine screening for STI (sexually transmitted infection) 02/03/2025 Travel 02/02/[address] [address] Heidi Mckeon ANP CHART PREP 01/24/2025 1:00 PM EDT Clinical Support [address] [address] Chelsea Rodriguez RN Essential hypertension 01/24/2025 Travel 01/19/[address] [place] [address] Heidi Mckeon ANP Nurse Triage 01/19/2025 Refill [facility] [address] [facility] [place] [address] Heidi Mckeon ANP 01/13/2025 Orders Only [facility] [place] [address] Heidi Mckeon ANP from Last 3 Months Immunizations Immunization Administration Dates Next Due Hep B, adult 10/28/2017,06/03/2007,02/12/2004 Influenza Injectable Quadriv alant Preservative Free IIV4 MDCK 06/22/2023,04/09/2022 Influenza injectable quadriv alent IIV4 with preservative 04/10/2016,03/23/2015 Influenza injectable quadriv alent preservative free 08/23/2020,06/16/2019,06/07/2018 Influenza, IIV3, injectable 04/12/2014, 1 Influenza, live, intranasal 06/03/2007 Pneumococcal Conjugate PCV 20 02/03/2025 TD (adult), 2 Lf tetanus tox oid, preservative free, adsorbed 02/12/2004 Tdap 03/23/2015 Zoster, Recombinant 04/09/2022 Social History Tobacco Use Types Packs/Day Years Used Date Smoking Tobacco: Former Cigarettes Q uit: 2018 Smokeless Tobacco: Never Tobacco Cessation:Counseling Given: Not Answered Alcohol Use Standard Drinks/Week Comments Yes 20 [...] Mass Index 42.58 02/27/2025 2:12 PM EDT Plan of Treatment Upcoming Encounters Date Type Department Care Team (Late st Contact Info) Description 03/30/2025 3:30 PM EDT Clinical Support [facility] [address] [place] [phone] Health Maintenance Due Date Last Done Comments CT Colonography 1968 FIT DNA/Cologuard 1970 FIT 1970 FOBT 1970 Sigmoidoscopy 1968 Alcohol/Substance Use Screening 1980 Zoster Vaccines (2 of 2) 06/04/2022 04/09/2022 COVID-19 Vaccine ( - season) 2024 Influenza Vaccine (#1) 2025 , 04/09/2022, 08/23/2020, Additional history exists DTaP/Tdap/Td Vaccines (2 - Td or Tdap) 03/23/2025 03/23/2015, 02/12/2004 Colonoscopy 04/12/2025 04/12/2020 Colorectal Cancer Screening 04/12/2025 Depression Monitoring 08/06/2025 02/03/2025, 025 Disability Screening 02/03/2026 02/03/2025 SDOH Screening 02/03/2026 02/03/2025 Tobacco Screening 02/27/2026 02/27/2025 Pap Smear 08/18/2026 08/18/2023 Mammogram 01/13/2027 01/13/2025, 0310/2020, 09/06/2020, Additional history exists Lipid Panel 07/14/2028 07/14/2023, 03/07, 09/07/2020 Cervical Cancer Screening 08/18/2028 HPV/Cotest 08/18/2028 08/18/2023 RSV Patients and Patients Aged 60 years or older (1 - 1-dose 75+ series) 2043 Hepatitis B Vaccines Completed 10/28/2017, 06/03/2007, 02/12/2004 HIV Screening Completed 09/07/2020 Hepatitis C Screening Completed 09/07/2020 Pneumococcal Vaccine: 50+ Years Completed 02/03/2025 HIB Vaccines Aged Out No longer eligi [...] Procedure Name Priority Date/Time Associated Diagnosis Comments BI MAMMOGRAM SCREENING TOMOSYNTHESIS BILATERAL Routine 01/13/2025 8:30 AM EDT HPV MRNA E6/E7 REFLEX TO HPV 16, 18/45 Routine 08/18/2023 8:30 AM EST PAP SMEAR Routine 08/18/2023 8:30 AM EST LIPID PANEL, STANDARD Routine 07/14/2023 9:53 AM EST Lipid screening ZZZ HISTORICAL HEPATITIS C AB W/REFL TO HCV RNA, QN, PCR Routine 09/07/2020 1:01 PM EST HIV 1/2 ANTIGEN/ANTIBODY, FOURTH GENERATION W/RFL Routine 09/07/2020 1:01 PM EST HM COLONOSCOPY Routine 04/12/2020 10:39 AM EDT from Last 3 Months or Most Recently Relevant to Health Maintenance Results * BI Mammogram Screening Tomosynthesis Bilateral (01/13/2025 8:30 AM EDT) Anatomical Region Laterality Modality Breast Bilateral Mammography 01/13/2025 8:30 AM EDT Narrative 01/24/2025 5:26 PM EDT [facility] [address] [place] [address] Mammography Report Signed Patient: Birgit Dixon MR#: [id number] : 1970 Acct:[id number] Age/Sex: 54 / F ADM Date: 01/13/25 Loc: [facility] Attending Dr: Heidi Mckeon NP Ordering Physician: HEIDI MCKEON NP Results: 1Negative Date of Service: 01/13/25 Follow Up: 1 Year From Orig inal Mammogram Procedure(s): MM tomosynthesis screening BI Accession Number(s): [id number] cc: HEIDI MCKEON NP EXAMINATION: MM SCREENING DIGITAL BREAST TOMOSYNTHESIS, BILATERAL CLINICAL INFORMATION: Screening. Asymptomatic. COMPARISON: Mammography: Comparison is made with available priors TECHNIQUE: Digital breast mammography with tomosynthesis is performed in both the craniocaudal and mediolateral oblique views along with computer-aided detection (CAD). FINDINGS: There are scattered areas of fibroglandular density (ACR BI-RADS breast composition Category b). There are no significant masses, abnormal calcifications, or other abnormalities. MM/MM tomosynthesis screening BI IMPRESSION: No mammographic evidence of malignancy. ASSESSMENT: BI-RADS BI-RADS 1 - Negative RECOMMENDATION: Routine annual mammography screening. 1 year F/U This examination should not preclude the clinical evaluation of a suspicious palpable abnormality. This patient's information was entered into a reminder system with a target due date for their next mammogram. Electronically signed by: Gladys Grider DO 01/24/2025 05:23 PM EDT RP Dictated By: Gladys Grider DO Signed By: <Electronically signed by Gladys Grider DO in OV> 01/24/25 1723 DD/ 0830 TD/TT: 01/13/25 0843 Fisheries Management Biologist: Procedure Note Donotuseinterpreter, Image - 01/24/2025 [facility] [address] [place] [address] Mammography Report Signed Patient: Birgit Dixon#: [id number] : 1970Acct:[id number] Age/Sex: 54 / FADM Date: 01/13/25 Loc: [facility] Attending Dr: Heidi Mckeon NP Ordering Physician: HEIDI MCKEON NPResults: 1Negative Date of Service: 01/13/25Follow Up: 1 Year From Orig inal Mammogram Procedure(s): MM tomosynthesis screening BI Accession Number(s): [id number] cc: HEIDI MCKEON NP EXAMINATION: MM SCREENING DIGITAL BREAST TOMOSYNTHESIS, BILATERAL CLINICAL INFORMATION: Screening. Asymptomatic. COMPARISON: Mammography: Comparison is made with available priors TECHNIQUE: Digital breast mammography with tomosynthesis is performed in both the craniocaudal and mediolateral oblique views along with computer-aided detection (CAD). FINDINGS: There are scattered areas of fibroglandular density (ACR BI-RADS breast composition Category b). There are no significant masses, abnormal calcifications, or other abnormalities. MM/MM tomosynthesis screening BI IMPRESSION: No mammographic evidence of malignancy. ASSESSMENT: BI-RADS BI-RADS 1 - Negative RECOMMENDATION: Routine annual mammography screening. 1 year F/U This examination should not preclude the clinical evaluation of a suspicious palpable abnormality. This patient's information was entered into a reminder system with a target due date for their next mammogram. Electronically signed by: Gladys Grider DO 01/24/2025 05:23 PM EDT RP Dictated By: Gladys Grider DO Signed By: <Electronically signed by Gladys Grider DO in OV> 01/24/25 1723 DD/ 0830 TD/TT: 01/13/25 0843 Fisheries Management Biologist: Heidi NEGRO [facility] BI PROCEDURES Final Result * HPV mRNA E6/E7 w/Reflex to HPV Genotypes 16, 18/45 (08/18/2023 8:30 AM EST) HPV nRNA E6/E7 Not Detected Not Detected [facility] Comment:Methodology: Transcr iption-Mediated AmplificationThis assay detects E6/E7 viral messenger RNA (mRNA) from 14high-risk HPV types (16,18,31,33,35,39,45,51,52,56,58,59,66,68).Cervical sources are required for HPV testing.If a vaginal source from a patient who has had atotal hysterectomy with removal of cervix wassubmitted, please contact the testing laboratoryfor alternative testing options.For additional information, please refer tohttp://education.[employer]/faq/CUY212r7(This link if provided for information/educational purposes only.)THIS TEST WAS PERFORMED AT:[facility] [place] [id number] GODOY MD HPV mRNA E6/E7 [facility] HPV 16 RNA [facility] HPV 18/45 RNA [facility] 08/18/2023 8:30 AM EST 08/19/2023 9:45 AM EST us Generic External Data Provider LAB CYTOLOGY ORDZane CAMEJO Final Result [facility] [address] [place] [phone] * Pap Smear (08/18/2023 8:30 AM EST) 08/18/2023 8:30 AM EST 08/19/2023 9:45 AM EST Narrative [facility] - 09/01/2023 1:21 PM EST ----- ------- Name: John Birgit Lopez Age/Sex: 53/F : 1970 Unit#: [id number] Attend Dr: Dionicio Berger MD Re08/18/23 Status: DEP REF Location: HO.LNP Disch: ----- ------- SPEC : [id number] RECD: 08/19/23 STATUS: ERMA HOLLOWAY NUM: [id number] JEYSON: 08/18/[address]: Dionicio Berger MD ENTERED: 08/19/23-3673 SP TYPE: Pap Smr OTHR DR: ORDERED: [...] 59, 66, 68) HPV testing performed by [employer] [facility] [employer], [place]. See reference laboratory portion of the EMR for entire report. Clinical Information LMP: Postmenopausal Previous PAP test: Unknown date/findings Material Received ThinPrep-Cervical ----- ------- Signed (signature on file) KARMA Shen (ASCP) 09/01/23 1321 ----- ------- END OF REPORT us Generic External Data Provider LAB CYTOLOGY BOBBY CAMEJO Final Result [facility] [address] [place] [address] [phone] * (ABNORMAL) Lipid Panel, Standard (07/14/2023 9:53 AM EST) Triglycerides 107 <150 mg/dL [facility] Comment:Desirable Triglyceri de: less than 150 mg/dLBorderline High Triglyceride 150-199 mg/dLHigh Triglyceride: 200-499 mg/dLVery High Triglyceride: greater than or equal to 5OO mg/dL Cholesterol 229(H) <200 mg/dL [facility] Comment:Desirable Cholestero l: less than 200 mg/dLBorderline High Cholesterol: 200-239 mg/dLHigh Cholesterol: greater than 239 mg/dL LDL Cholesterol Calculated 144(H) <100 mg/dL [facility] Comment:Desirable LDL: less than 100 mg/dLNear Optimal/Above Optimal LDL: 110- 129 mg/dLBorderline High LDL: 130-159 mg/dLHigh LDL: 160-189 mg/dLVery High LDL: greater than or equal to 190 mg/dL HDL Cholesterol 64 >40 mg/dL [facility] Comment:Desirable HDL: great er than 40 mg/dL Note: This HDL assay may give artificially low results in patients with liver disease. Blood Venous blood specimen / Unknown 07/14/2023 9:53 AM EST 07/14/2023 11:23 AM EST us Heidi NEGRO LAB BLOOD ORDERABLES Final Resul t Performing Organization Address [facility] de Phone Number [facility] [address] [place] [phone] * HEPATITIS C AB W/REFL TO HCV RNA, QN, PCR (09/07/2020 1:01 PM EST) HEPATITIS C ANTIBODY NON-REACT CAMERON NON-REACT CAMERON [facility] INDEX 0.02 <1.00 [facility] Comment: HCV antibody was non-reactive. There is no laboratory evidence of HCV infection. In most cases, no further action is required. However, if recent HCV exposure is suspected, a test for HCV RNA (test code 49948) is suggested. For additional information please refer to http://education.[employer]faq/HBO83d6 (This link is being provided for informational/ educational purposes only.) 09/07/2020 1:01 PM EST us Heidi Mckeon ANP HISTORICAL/NON ORDERABLE LABS Fi nal Result Performing Organization Address City/[facility]/ZIP Co de Phone Number [facility] [address] * HIV 1/2 ANTIGEN/ANTIBODY,FOURTH GENERATION W/RFL (09/07/2020 1:01 PM EST) HIV-1/2 ANTIGEN AND ANTIBODIES, 4TH GENERATION W/ REFLEX NON-REACT CAMERON NON-REACT CAMERON [facility] Comment: HIV-1 antigen and HIV-1/HIV-2 [...] purpose. For additional information please refer to http://[employer].Videolicious/faq/LEG166 (This link is being provided for informational/ educational purposes only.) The performance of this assay has not been clinically validated in patients less than 2 years old. 09/07/2020 1:01 PM EST [facility] LAB BLOOD ORDERABLES Final Resul t [facility] [address] * Hm Colonoscopy (04/12/2020 10:39 AM EDT) Historical Provider HEALTH MAINTENANCE Final Result from Last 3 Months or Most Recently Relevant to Health Maintenance Insurance [facility] C3 Care Teams Superintendent Institution Relationship Specialty Start Date End Date Heidi Mckeon ANP [address] [place] [phone] PCP - General Family Medicine 02/16/20
--- OUTSIDE RECORDS SUMMARY | 2025-02-28 08:56 | XMS_ITS | Encounter Summary ---
Author Organization [employer] Address [address] [facility] 7t [place] [address] Care Team Providers Care Clinical Educator Name Role Phone Josephine Watkins Primary Care Provider [phone] Encounter Details Date Type Department Care Team (Latest Contact Info) Description 02/27/2025 Travel Social History Tobacco Use Types Packs/Day Years [...] AM EDT documented as of this encounter Functional Status * Over the [...] Description 03/30/2025 3:30 PM EDT Clinical Support [facility] [address] [place] [address] documented as of this encounter Visit Diagnoses Not on filedocumented in this encounter Additional Health Concerns Assessment Noted Time PHQ-9 Depression Total Score: 11 025 9:14 AM EDT documented as of this encounter Care Teams Clinical Educator Relationship Specialty Start Date End Date Josephine Watkins ANP [address] [place] [address] PCP - General Family Medicine 02/16/20 documented as of this encounter
--- OUTSIDE RECORDS SUMMARY | 2025-02-28 08:56 | XMS_ITS | Encounter Summary ---
Author Organization [facility] [facility] Address [address] [place] [address] 7 [place] [address] Care Team Providers Care Director Television News Name Role Phone Josephine Watkins Primary Care Provider [phone] Reason for Visit * Reason Onset Date Comments Referral 06/19/2023 Encounter Details Date Type Department Care Team (Late st Contact Info) Description 06/19/2023 Telephone [facility] [address] [place] [address] [phone] Josephine Watkins ANP [address] [place] [address] [phone] Referral Social History Tobacco Use Types Packs/Day Years Used Date Smoking Tobacco: Never Assessed Comments Unknown Sex and Gender Information Value Date Recorded Sex Assigned at Female 05/05/2022 10:16 AM EDT Legal Sex Female 10:16 AM EDT Gender Identity Female 05/05/2022 10:16 AM EDT Sexual Orientation Straight 05/05/2022 10 :16 AM EDT documented as of this encounter Miscellaneous Notes * Telephone Encounter - Jhon Caceres - 06/19/2023 4:18 PM EST Tc from patient calling to request a referral to the vision center at [facility] documented in this encounter Plan of Treatment Upcoming Encounters Date Type Department Care Team (Late st Contact Info) Description 03/30/2025 3:30 PM EDT Clinical Support [facility] [address] [place] [phone] documented as of this encounter Visit Diagnoses Not on filedocumented in this encounter Care Teams Director Television News Relationship Specialty Start Date End Date Josephine Watkins ANP [address] [place] [address] PCP - General Family Medicine 02/16/20 documented as of this encounter
[2025-02-28 11:27] LABS: Hemoglobin A1C 129.1123 umol/L; Total Hemoglobin (HGBA1C) 3685.6414 umol/L
[2025-02-28 11:28] LABS: Alanine Aminotransferase 46 U/L (0-31); Albumin Level 4.5 g/dL (3.5-5.0); Alkaline Phosphatase 144 U/L (39-117); Anion Gap 12 (12-20); Aspartate Amino Transferase 34 U/L (5-31); Blood Urea Nitrogen 22 mg/dL (9-16); Calcium 9.9 mg/dL (8.4-10.2); Carbon Dioxide 28 mmol/L (22-29); Chloride 106 mmol/L (96-108); Cholesterol 261 mg/dL (<200); Estimated Glomerular Filt Rate > 60; HDL Cholesterol 69 mg/dL (>40); Potassium 4.5 mmol/L (3.3-5.1); Sodium 141 mmol/L (135-145); Total Protein 7.5 g/dL (6.5-8.0); Triglycerides 121 mg/dL (<150)
[2025-02-28 11:46] LABS: Microalbum/Creatinine Ratio Ur 4.8 ug/mg cr (<30); Syphilis Screen Nonreactive (Nonreactive)
[2025-02-28 11:54] LABS: Vitamin B12 313 pg/mL (200-900)
[2025-02-28 12:12] LABS: HIV Num 1 0.05 S/CO (0.00-0.99); ~HepC Num1 0.12 S/CO (0.00-0.79); ~Hepatitis C Antibody Nonreactive (Nonreactive)
== END 2025-02-28 08:43 | disposition home or self-care (01) ==
LOC: HO.HHCL 08:42
PROVIDERS: PCP Nurse Practitioner Primary Care; Visit Provider Nurse Practitioner Primary Care
DX: Z11.3 Encounter for screening for infections with a predominantly sexual mode of transmission (principal); Z11.59 Encounter for screening for other viral diseases; Z11.4 Encounter for screening for human immunodeficiency virus [HIV]; I10 Essential (primary) hypertension; E78.00 Pure hypercholesterolemia, unspecified; E53.8 Deficiency of other specified B group vitamins
CPT/HCPCS: 36415; 80048; 80061; 80076; 82043; 82570; 82607; 83036; 86780; 86803; 87389